=== PATIENT | male | born 1955 | race Caucasian/White ===

== ENCOUNTER 2018-01-12 08:38 | Inpatient (IN) | payer BC ==
[2018-01-12 09:19] LABS: #Basophils 0.1 thou/uL (0.0-0.2); #Eosinphils 0.3 thou/uL (0.0-0.7); #Lymphocytes 1.6 thou/uL (1.20-3.40); #Monocytes 0.6 thou/uL (0.11-0.59); #Neutrophils 3.6 thou/uL (1.40-6.50); %Basophils 1.3 % (0.0-1.0); %Eosinophils 4.6 % (0.0-10.0); %Neutrophils 58.1 % (42.0-75.0); Hemoglobin 17.9 g/dL (14.0-18.0); Mean Corpuscular HGB CONC 34.2 g/dL (32.0-36.0); Mean Corpuscular Hemoglobin 32.6 pg (27.0-31.0); Mean Corpuscular Volume 95.4 fl (80.0-94.0); Mean Platelet Volume 8.1 fL (7.4-10.4); Platelet Count 169 thou/uL (130-400); RBC Distribution Width 11.9 % (11.5-14.5); Red Blood Cell (RBC) Count 5.48 mill/uL (4.70-6.10); White Blood Cell (WBC) Count 6.2 thou/uL (4.8-10.8)
[2018-01-12] MEDS ORDERED: Esmolol 100 MG/10 ML VIAL IVP SCH (09:30)
[2018-01-12 09:33] LABS: ALT (SGPT) 20 U/L (8-55); AST (SGOT) 20 U/L (5-34); Albumin 4.1 g/dL (3.4-4.8); Alkaline Phosphatase 73 U/L (40-150); Anion Gap 13 mmol/L (10-20); BUN (Urea Nitrogen) 17 mg/dL (8.4-25.7); Bilirubin, Total 0.8 mg/dL (0.2-1.2); CK (CPK) 113 U/L (30-200); Calc. Creatinine Clearance 0 mL/min (70-130); Calcium 9.3 mg/dL (7.8-10.44); Carbon Dioxide 24 mmol/L (23-31); Chloride 106 mmol/L (98-107); Estimated GFR-MDRD Greater than 90; Glucose 112 mg/dL (80-115); Potassium 4.6 mmol/L (3.5-5.1); Protein, Total 7.1 g/dL (5.8-8.1); Sodium 138 mmol/L (136-145)
[2018-01-12 09:36] LABS: CKMB 2.6 ng/mL (0-6.6); Troponin I Less than 0.010 ng/mL (< 0.028)
[2018-01-12] MEDS ORDERED: Esmolol 2,500 MG/250 ML 250 ML ONE (09:52)
--- NOTE | 2018-01-12 10:16 | RAD ---
CHEST ONE VIEW PORTABLE: HISTORY: A 62-year-old male with a history of palpitations. FINDINGS: Monitor leads overly the chest. Minimal increased linear and interstitial markings bilaterally, havi ng more the appearance of chronic lung change. No confluent pneumonia, overt edema, or pleural effus ion. IMPRESSION: No significant acute process. No pneumonia, edema, pleural effusion, or other acute process. POS: OFF
--- NOTE | 2018-01-12 10:51 | PDOC.FPRHP ---
- History of Present Illness Chief Complaint: Palpitations History of Present Illness: This is a 62 y/o M with no PMHx who presents with because of his heart racing that woke him up around 0300 this AM. He had associated numbness on his chest, but denies any SOB, chest pain, recent fevers. He reports that he has had episodes of his heart racing before that will last for about an hour and then go away on their own. During these episodes he will get a little lightheaded if he gets up and walks around, but the lightheadedness resolves after a few minutes. He has never sought medical attention for this before. He has no history of heart disease or heart failure. He denies exercise intolerance. He takes an aspirin every day. ED Course: The patient was seen in the ED and found to be in a-fib with RVR and started on an esmolol gtt after getting a bolus of esmolol of 0.5 mg/kg. He was also given 1L NS bolus. - Allergies/Adverse Reactions Allergies Allergy/AdvReac Type Severity Reaction Status Date / Time No Known Allergies Allergy Verified 01/12/18 14:56 - Home Medications Medication Instructions Recorded Confirmed Type Aspirin 325 mg PO DAILY 01/12/18 01/12/18 History Apixaban [Eliquis] 5 mg PO BID 01/15/18 01/15/18 History Apixaban [Eliquis] 5 mg PO BID #60 tablet 01/15/18 Rx Sotalol HCl [Betapace] 120 mg PO BID #60 tab 01/15/18 Rx Comments: None - History PMHx: None PSHx: 1. Appendectomy 2. Hernia Repair 3. R shoulder sx FHx: Father- valvular heart disease Social: Drinks 5-12 beers/day. He states that he can go for 24 hours without shakes. his last drink was yesterday at 3 PM. Denies drug or tobacco use. 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 PCP: none, gets physicals and urgent care treatment at work clinic. - Review of Systems General: denies: fever/chills, weight/appetite/sleep changes, night sweats Eyes: denies: eye pain, vision changes ENT: denies: nasal congestion, rhinorrhea Respiratory: denies: cough, congestion, shortness of breath Cardiovascular: reports: palpitation. denies: chest pain, edema, paroxysmal nocturnal dyspnea, orthopnea Gastrointestinal: denies: nausea, vomiting, diarrhea, constipation Genitourinary: denies: incontinence, dysuria Skin: denies: rashes, lesions, jaundice Musculoskeletal: denies: pain, tenderness, stiffness Neurological: denies: numbness, syncope Psychological: denies: anxiety, depression - Vital signs BP: 126/95 HR: 134 RR: 19 Pox: 93% on RA Wt: 92.9 kg - Physical Exam Constitutional: NAD, awake, alert and oriented, well developed HEENT: normocephalic and atraumatic, PERRLA, EOMI, conjunctiva clear, grossly normal vision, grossly normal hearing, normal nasal mucosa, MMM, oropharynx clear, good dention Neck: supple, FROM, trachea midline, no LAD, no JVD -Heart: irregularly irregular, tachycardic, no murmurs, 2+ radial and pedal pulses, no peripheral edema Lungs: CTAB, no respiratory distress, good air movement, no rales/rhonchi, no wheezing, no retractions Abdomen: soft, non-tender, bowel sounds present, no masses/distention Musculoskeletal: normal structure, normal tone Neurological: no focal deficit, CN II-XII intact Skin: good turgor, capillary refill <2 seconds Heme/Lymphatic: no unusual bruising or bleeding, no LAD Psychiatric: normal mood and affect, good judgment and insight, intact recent and remote memory FMR H&P: Results - Labs Result Diagrams: 01/12/18 09:07 01/13/18 04:05 Lab results: WBC 6.2 thou/uL (4.8-10.8) 01/12/18 09:07 Hgb 17.9 g/dL (14.0-18.0) 01/12/18 09:07 Hct 52.3 % (42.0-52.0) H 01/12/18 09:07 MCV 95.4 fl (80.0-94.0) H 01/12/18 09:07 Plt Count 169 thou/uL (130-400) 01/12/18 09:07 Neutrophils % 58.1 % (42.0-75.0) 01/12/18 09:07 Sodium 138 mmol/L (136-145) 01/12/18 09:07 Potassium 4.6 mmol/L (3.5-5.1) 01/12/18 09:07 Chloride 106 mmol/L (98-107) 01/12/18 09:07 Carbon Dioxide 24 mmol/L (23-31) 01/12/18 09:07 BUN 17 mg/dL (8.4-25.7) 01/12/18 09:07 Creatinine 0.85 mg/dL (0.6-1.3) 01/12/18 09:07 Glucose 112 mg/dL (80-115) 01/12/18 09:07 Calcium 9.3 mg/dL (7.8-10.44) 01/12/18 09:07 Total Bilirubin 0.8 mg/dL (0.2-1.2) 01/12/18 09:07 AST 20 U/L (5-34) 01/12/18 09:07 ALT 20 U/L (8-55) 01/12/18 09:07 Alkaline Phosphatase 73 U/L (40-150) 01/12/18 09:07 Creatine Kinase 113 U/L (30-200) 01/12/18 09:07 CK-MB (CK-2) 2.6 ng/mL (0-6.6) 01/12/18 09:07 Serum Total Protein 7.1 g/dL (5.8-8.1) 01/12/18 09:07 Albumin 4.1 g/dL (3.4-4.8) 01/12/18 09:07 - EKG Interpretation EKG: HR 162, A-fib with RVR - Radiology Interpretation Chest x-ray Status: image reviewed by me, report reviewed by me Additional comment: No acute cardiopulmonary process FMR H&P: A/P - Problem List (1) Atrial fibrillation with RVR Status: Acute Code(s): I48.91 - UNSPECIFIED ATRIAL FIBRILLATION (2) Alcohol abuse Status: Acute Code(s): F10.10 - ALCOHOL ABUSE, UNCOMPLICATED - Plan Atrial fibrillation with RVR This is new onset a-fib with RVR. The patient denies any h/o a-fib previously. The patient's initial HR was 161 and it improved to the 130's after an esmolol bolus and he was started on an esmolol gtt in the ED. -Prefer to admit to Tele or IMCU, but denied based on nursing protocols so will admit to ICU -Will start on diltiazem gtt, titrate to HR < 110, monitor BP closely -Will check TSH, Mag, Phos -Echo -Trend cardiac enzymes, first one was negative -Dr. Christianson with carol has been consulted, appreciate recs Alcohol Abuse Patient drinks 5-12 beers daily, but has days where he skips without signs of withdrawal. -ASE protocol, monitor for signs/symptoms of withdrawal -Thiamine -Folic Acid -Multivitamin VTE ppx: Lovenox Code Status: Full Disposition/LOS: Patient seems stable for Tele or IMCU per our judgement, but based on nursing protocols and his diltiazem drip, they declined and we will admit to ICU. length of stay likely greater than 2 days FMR H&P: Upper Level - Pertinent history 62 yo who woke up with palptiations at 4 am. he took a few aspirin, he had some lightheadedness and fatigue but denies chest pain. He did have a numbness in his chest. Denies exertional symptoms at baseline. He had a few of these events for the last 2 years but nothing this significant and nothing he has gotten checked out. This usually goes away on his own. - Pertinent findings Gen: overweight male in no acute distress, oriented and not in discomfort HEENT: NC/AT, ANAIS,EOMI, MMM Resp: CTA, normal work of breathing CV: tachycardic with irregularly irregular rhythm, normal S1, S2, no murmur ABD: Soft nontender, nondistended. No CVA tenderness Extremities: no edema, pulses 2+ Psych: calm, normal affect and mood Neuro: No focal defecits. CN intact, normal strength and sensation - Plan Date/Time: 01/12/18 1049 Estefania King, have evaluated this patient and agree with findings/plan as outlined by senior insight manager international resident. Pertinent changes/additions are listed here. 1. Atrial fibrillation with rapid ventricular response- We will use diltiazam to bring rate down below 110 while maintaining blood pressure. If BP becomes an issue, will add digoxin. We will work up with electrolytes, echo and repeat troponins. Carol was consulted in ED and we look forward to their recs. CHADS VASC score is negative, and while he occasionally gets brief episodes of palpitations, He does not have record or hx consistent with sustained Afib, so will hold on therapeutic lovenox at this time until cardiology evaluates him. 2. Etoh abuse- patient drinks daily 5-12 beers but denies withdrawal related symptoms when he does not drink. Will monitor on SULLY protocol. 3. DVT ppx- will start lovenox Attending Addendum - Attending Addendum Date/Time: 01/12/18 1700 I personally evaluated the patient and discussed the management with Dr. Hernandez and Dr. May I agree with the History, Examination, Assessment and Plan documented above with any addition or exceptions noted below. 62 yo male admitted for new onset A. fib with RVR. Has been placed on CCB drip to help with rate control. BP stable. Asymptomatic at present. HR 100s. Cards has been consulted. No need for cardioversion at present. Will start ppx dose of Lovenox per card recs at present but could change based on findings. Add ASA. Labs pending. Place on tele. ECHO pending. Will follow cards recs for rate vs rhythm control. Possible history of pA. fib per ROS. No prior MD so medical hx is negative at present. Hx of EtOH use. Will monitor for withdrawal symptoms. Add ASE protocol. Agus
[2018-01-12] MEDS ORDERED: Diltiazem 125 MG in Sodium Chloride 0.9% 100 ML IVPB SCH (11:30)
[2018-01-12 12:31] LABS: Troponin I Less than 0.010 ng/mL (< 0.028)
[2018-01-12] MEDS ORDERED: Digoxin 0.5 MG/2 ML AMP ONE (13:27)
[2018-01-12] MEDS ORDERED: Ondansetron ODT 4 MG TAB PO PRN (14:11)
[2018-01-12 14:40] LABS: Magnesium 2.1 mg/dL (1.6-2.6); Phosphorus 3.2 mg/dL (2.3-4.7)
[2018-01-12] MEDS ORDERED: Multivitamin W/ Minerals 1 TAB PO SCH (14:45)
[2018-01-12] MEDS ORDERED: Folic Acid 1 MG TAB PO SCH (14:45)
[2018-01-12 15:07] VITALS: BMI 30.1
--- NOTE | 2018-01-12 15:47 | CON ---
DATE OF CONSULTATION: 01/12/2018 SERVICE: Pulmonary Medicine. INTERVAL HISTORY: The patient is doing fine from a respiratory standpoint. He denies any current chest pain, nausea, vomiting, fevers or chills. He presented to the hospital because this morning he woke up with some palpitations and a funny numbness and tingling in his right arm. The numbness and tingling went away. That being said, he has had these palpitations on and off for several months, if not years. It became more severe dramatically recently. He recently had 2 weeks of vacation. On waking up this morning, he finally decided to get this thing checked out. When he presented to the Emergency Department, he was found to be in an abnormal rhythm. He denies any current nausea, vomiting, fevers, chills, diarrhea, constipation, hot and red swollen joints, rashes. PAST MEDICAL HISTORY: Atrial fibrillation with a history of RVR. PAST SURGICAL HISTORY: 1. Appendectomy. 2. Herniorrhaphy. 3. Right shoulder surgery. FAMILY HISTORY: Noncontributory. SOCIAL HISTORY: He drinks 6-12 beers on a daily basis. He does have withdrawal features if he goes more than 24 hours without alcohol. He has never had any seizures. He denies any street drugs, or tobacco use. 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 He has no exposures to chemicals, dust, asbestosis or tuberculosis otherwise. ALLERGIES: No known drug allergies. MEDICATIONS: List of his inpatient medications was reviewed. No specific updates were made. REVIEW OF SYSTEMS: General, head, ears, eyes, nose, throat, cardiovascular, respiratory, GI, , musculoskeletal, neurologic and skin is negative except as mentioned in the HPI. PHYSICAL EXAMINATION: VITAL SIGNS: Afebrile, pulse 95, blood pressure 132/77, respirations 17, saturation 92% on room air. GENERAL: The patient is awake, alert, no apparent distress. LUNGS: Excellent air entry. Minimal crackles are present. There is no prolonged expiratory phase or wheezing present. HEART: Normal rate and regular. ABDOMEN: Soft, nontender, and nondistended. Bowel sounds are positive. MUSCULOSKELETAL: No cyanosis or clubbing. No pitting in the bilateral lower extremities. NEUROLOGIC: Grossly nonfocal. LABORATORY DATA: WBC 6.2, hemoglobin 17.9, platelets 169,000. Basic metabolic profile and liver function studies are unremarkable. Cardiac enzymes are negative x2. TSH 1.77, magnesium and phosphorus fall within normal limits. IMAGING: Chest x-ray demonstrates no acute cardiopulmonary abnormality. ASSESSMENT: 1. Atrial fibrillation with rapid ventricular response with improving rate control. 2. Alcohol abuse. 3. Holiday heart, suspected. PLAN: I will continue on rate control medication. Cardiology consultation has been placed for the patient's new onset of atrial fibrillation. Agree with watching his ASE scores. If he bumps, benzodiazepine should be initiated. I will provide him with a beer 3 times daily and we can increase if we need to prevent withdrawal features. At this point, the patient is not too terribly interested in discontinuing his habit of drinking. From my perspective, he is stable for transition to the telemetry unit. I will continue to follow with you if he remains in this location. 70 minutes have been devoted to this patient in various activities. I personally reviewed all imaging studies and laboratory data noted within this document. For fifty percent of this time, I was interacting with the patient at the bedside or coordinating care with the care team. For the remainder of the time I was immediately available to the patient in the hospital unit. CHRIS
[2018-01-12 15:52] LABS: Troponin I Less than 0.010 ng/mL (< 0.028)
[2018-01-12] MEDS ORDERED: Enoxaparin Sodium 40 MG/0.4 ML SYRINGE SC SCH (16:30)
--- NOTE | 2018-01-12 16:54 | CON ---
DATE OF CONSULTATION: 01/12/2018 INDICATION FOR CONSULTATION: A 62-year-old gentleman with new onset atrial fibrillation with rapid v entricular response. HISTORY OF PRESENT ILLNESS: This very pleasant 62-year-old gentleman has had some episodes of some p alpitations for the last couple of years that usually just resolve on their own. At approximately 03 :00 this morning, he woke up with a rapid heart rate with some numbness in the right arm and hand and actually just a couple of the fingers and also had some kind of tingling sensation in his hands and then he had what he said was some numbness in the chest area. The rapid heart rate continued and he presented to the emergency room and was found to be in atrial fibrillation with rapid ventricular res ponse with heart rate about 160 beats per minute. He was given IV esmolol and has now been switched over to IV diltiazem and has been placed in the Intensive Care Unit, but he is feeling fine. He deya ed any chest pain otherwise and he has had no previous cardiac history except for the palpitations. He does have a significant use of alcohol. He denied any other significant abnormalities that would cause him to be in atrial fibrillation. He does not have any history of hypertension, hypercholester olemia or diabetes. He has a history of tobacco abuse. FAMILY HISTORY: His father had some heart disease, otherwise is unremarkable. There were no other s ignificant indications as to why he may have atrial fibrillation other than the increased alcohol use . PAST MEDICAL HISTORY: Right shoulder surgery, appendectomy and hernia repair. SOCIAL HISTORY: He is . He has children who are alive and well without heart disease. He h as no tobacco abuse. He usually drinks 5-12 beers a day. 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 ALLERGIES: None. MEDICATIONS: At present, he is on aspirin 325 mg a day, IV diltiazem. He is also on Lovenox. He ferrer s been given just a DVT prophylaxis dose. He had been given beta blockers in the emergency room. Th na have been discontinued. He is on folic acid as well as his multivitamins, thiamine and Zofran an d I will start him on sotalol 80 mg b.i.d. REVIEW OF SYSTEMS: Twelve point review of systems unremarkable except for the palpitations. PHYSICAL EXAMINATION: GENERAL: Reveals a well-developed, well-nourished gentleman who is in no acute distress. VITAL SIGNS: Blood pressure 132/77, heart rate is now in the 90s-106, previous it was 162, respirato ry rate 17, O2 saturation 92%. HEENT: Shows head to be normocephalic and atraumatic. Carotid pulses are present. There were no br uits. There is no JVD. The thyroid is not enlarged. Oral mucosa was pink and moist. CHEST: Clear. There is no evidence of rales, rhonchi or wheezing. CARDIOVASCULAR: Reveals a rapid heart rate, somewhat irregular. There were no significant murmurs, heaves, thrills, bruits or rubs noted. ABDOMEN: Soft and nontender with positive bowel sounds. EXTREMITIES: Show no clubbing, cyanosis or edema. Pedal pulses are present. NEUROLOGIC: The patient is intact. SKIN: Warm and dry. LABORATORY DATA: His EKG when he had atrial fibrillation with rapid ventricular response shows atria l fibrillation. There were no acute ST segment elevations to indicate ischemia. His laboratory data is relatively unremarkable except he has elevated hemoglobin and hematocrit with hemoglobin of 17.9. His BUN and creatinine are stable. Creatinine 0.85. MB was 2.6 with negative cardiac enzymes. EK G showed no acute changes. IMPRESSION: 1. Atrial fibrillation with rapid ventricular response, which is under better control now with the u se of IV diltiazem. At this time, I will start him on beta miriam in the form of sotalol 80 mg b.i. d. and see if he will convert to sinus rhythm. If not, he may need to undergo electrocardioversion t omorrow and be maintained on medications, but would hopefully have at least 2 or 3 doses sotalol on b oard prior to starting with a cardioversion. He is at low risk for any acute embolic phenomenon sinc e his CHADS-VASc score is low. We will continue to monitor him. The echocardiogram is still pending . 2. Significant alcohol use. I advised him to stop drinking. He will at least need to curtail this significantly. It is a good possibility that this may be the etiology of his atrial fibrillation. Marvin durant has been on vacation recently and said he has been drinking more than normally he does and he drink s up to a 6-12 beers a day. We would be more than happy to continue to follow the patient with you, but further recommendations will depend on evaluation of the echocardiogram. Eventually, he may need to undergo a stress test, but there were no EKG changes with a heart rate in the 160, which would ce rtainly be somewhat suspicious for having known coronary artery disease. I would continue the aspiri n at this time as well as the IV diltiazem. Should he convert to sinus rhythm, then I will stop the IV diltiazem and continue the Betapace or sotalol.
[2018-01-12] MEDS ORDERED: Enoxaparin Sodium 100 MG/ML SYRINGE SC SCH (17:00)
[2018-01-12] MEDS ORDERED: Sotalol HCl 80 MG TAB PO SCH (17:30)
[2018-01-12] MEDS: Thiamine HCl 200 MG/2 ML VIAL SLOW IVP SCH (18:43)
[2018-01-12 23:44] LABS: Medtox Reader # READER 4
[2018-01-12 23:45] LABS: Amphetamine Not Detected (NotDetected); Barbiturates Screen Not Detected (NotDetected); Benzodiazepine Screen Not Detected (NotDetected); Cocaine Metabolite Screen Not Detected (NotDetected); Medtox Control Line Valid? VALID (VALID); Methadone Not Detected (NotDetected); Methamphetamine Not Detected (NotDetected); Opiate Screen Not Detected (NotDetected); Oxycodone Screen Not Detected (NotDetected); Phencyclidine (PCP) Not Detected (NotDetected); THC/Cannabinoid Screen Not Detected (NotDetected); Tricyclic Screen Not Detected (NotDetected)
[2018-01-13 04:42] LABS: Anion Gap 13 mmol/L (10-20); BUN (Urea Nitrogen) 13 mg/dL (8.4-25.7); Calc. Creatinine Clearance 131 mL/min (70-130); Calcium 9.1 mg/dL (7.8-10.44); Carbon Dioxide 27 mmol/L (23-31); Chloride 104 mmol/L (98-107); Estimated GFR-MDRD Greater than 90; Glucose 102 mg/dL (80-115); Potassium 4.5 mmol/L (3.5-5.1); Prothrombin Time 13.4 SEC (12.0-14.7); Sodium 139 mmol/L (136-145)
--- NOTE | 2018-01-13 08:36 | PDOC.FM ---
- Subjective Subjective: The patient reports that he is no longer feeling his heart race this morning. His chest does feel a little sore, but he denies any chest pain, SOB. He has been up walking to the bathroom a couple of times last night and denied any lightheadedness or dizziness when doing so. He denies any tremors. - Objective MAR Reviewed: Yes Vital Signs & Weight: Vital Signs (12 hours) Temp Pulse Resp BP BP Pulse Ox 01/13/18 07:59 98.0 F 118 H 19 107/75 94 L 01/13/18 06:10 101 H 97/75 01/13/18 04:00 97.7 F 73 20 115/74 95 01/12/18 23:49 97.7 F 74 16 107/86 95 01/12/18 21:29 98.2 F 55 L 16 118/75 93 L Weight Weight 92.624 kg Most Recent Monitor Data Heart Rate from ECG 54 NIBP 95/71 NIBP BP-Mean 82 Respiration from ECG 13 SpO2 96 I&O: 01/12/18 01/13/18 01/14/18 06:59 06:59 06:59 Intake Total 900 Output Total 1475 Balance -575 Result Diagrams: 01/12/18 09:07 01/13/18 04:05 <Shonna Hernandez - Last Filed: 01/13/18 08:34> - Objective Vital Signs & Weight: Vital Signs (12 hours) Temp Pulse Resp BP BP BP Pulse Ox 01/13/18 15:36 98.4 F 121 H 16 113/79 92 L 01/13/18 12:30 97.9 F 115 H 16 133/88 96 01/13/18 12:16 121 H 01/13/18 11:34 97.8 F 115 H 18 114/80 91 L 01/13/18 11:30 116 H 16 112/75 93 L 01/13/18 08:12 98.0 F 118 H 19 94 L 01/13/18 07:59 98.0 F 118 H 19 107/75 94 L 01/13/18 06:10 101 H 97/75 Weight Weight 92.624 kg Most Recent Monitor Data Heart Rate from ECG 54 NIBP 95/71 NIBP BP-Mean 82 Respiration from ECG 13 SpO2 96 I&O: 01/12/18 01/13/18 01/14/18 06:59 06:59 06:59 Intake Total 900 962 Output Total 1475 1225 Balance -575 -263 Result Diagrams: 01/12/18 09:07 01/13/18 04:05 <Charla Jerez - Last Filed: 01/13/18 17:08> Phys Exam - Physical Examination Constitutional: NAD (on 2L O2 by NC) HEENT: moist MMs Respiratory: no wheezing, no rales, no rhonchi, clear to auscultation bilateral irregularly irregular, tachycardic, no murmurs, 2+ radial and pedal pulses Gastrointestinal: soft, non-tender, no distention, positive bowel sounds Musculoskeletal: no edema Neurological: non-focal, moves all 4 limbs Psychiatric: normal affect, A&O x 3 Skin: normal turgor, cap refill <2 seconds <Shonna Hernandez - Last Filed: 01/13/18 08:34> Dx/Plan (1) Atrial fibrillation with RVR Code(s): I48.91 - UNSPECIFIED ATRIAL FIBRILLATION Status: Acute (2) Alcohol abuse Code(s): F10.10 - ALCOHOL ABUSE, UNCOMPLICATED Status: Acute - Plan Plan: Atrial fibrillation with RVR This is new onset a-fib with RVR. The patient denies any h/o a-fib previously. The patient's initial HR was 161 and it improved to the 130's after an esmolol bolus and he was started on an esmolol gtt in the ED. Cardiac enzymes negative x3. TSH, mag, phos WNL. UDS negative. Echo showed EF 60-65% with moderately dilated L atrium. Pt was on dilt gtt plus sotalol, but the HR yesterday evening dropped into the 40s-50s so the dilt gtt was d/c'd. The patient's HR then started to creep up and as of this AM was up into the 110s-120s with spikes into the 130s. He was given his AM dose of sotalol and his HR is now in the 90s-low 100s. -Monitor on tele -Continue sotalol 80mg BID per cardiology -Restart dilt gtt if needed -CHADs-Vasc score 0 - low risk for embolic event, so will continue aspirin for now. -Dr. Christianson with cards has been consulted, appreciate recs Alcohol Abuse Patient drinks 5-12 beers daily, but has days where he skips without signs of withdrawal. The EtOH abuse is likely the cause of his a-fib with RVR. No current signs of withdrawal. -ASE protocol, monitor for signs/symptoms of withdrawal -Thiamine -Folic Acid -Multivitamin <Shonna Hernandez - Last Filed: 01/13/18 08:34> Attending Addendum - Attending Addendum Date/Time: 01/13/18 7106 I personally evaluated the patient and discussed the management with Dr. Hernandez. I agree with the History, Examination, Assessment and Plan documented above with any addition or exceptions noted below. Patient started on sotalol yesterday. Diltiazem drip was stopped overnight due to bradycardia. This morning he is tachycardic again. Echo results reviewed. May need to go back on drip if heart rate rises. <Charla Jerez - Last Filed: 01/13/18 17:08>
[2018-01-13] MEDS ORDERED: Sotalol HCl 80 MG TAB PO SCH (09:00)
[2018-01-13] MEDS ORDERED: Enoxaparin Sodium 40 MG/0.4 ML SYRINGE SC SCH ×2 (09:00)
[2018-01-13] MEDS: Aspirin 325 MG TAB PO SCH (09:08)
[2018-01-13] MEDS: Multivitamin W/ Minerals 1 TAB PO SCH (09:08)
[2018-01-13] MEDS: Folic Acid 1 MG TAB PO SCH (09:09)
--- NOTE | 2018-01-13 10:25 | PRG ---
DATE OF SERVICE: 01/13/2018 SERVICE: Pulmonary Medicine. INTERVAL HISTORY: The patient is doing fine from a respiratory standpoint. He is breathing comforta natalya. He denies any chest pain, nausea, vomiting, fevers or chills. His heart is still racing. Othe rwise, there has been no interval change to his condition. PHYSICAL EXAMINATION: VITAL SIGNS: Afebrile, pulse 118, blood pressure 107/75, respirations 19, saturation 94% on 2 liters nasal cannula. GENERAL: The patient is awake and alert, in no apparent distress. LUNGS: Decent air entry. There are some crackles present. No prolonged expiratory phase or wheezin g is appreciated, however. HEART: Tachycardic. Irregular. ABDOMEN: Soft, nontender, nondistended. Bowel sounds are positive. MUSCULOSKELETAL: No cyanosis or clubbing. There is no pitting in the bilateral lower extremities. NEUROLOGIC: Grossly nonfocal. LABORATORY DATA: WBC 6.2, hemoglobin 17.9, platelets 169,000. INR 1.0. Basic metabolic profile is unremarkable. Urinalysis is completely unremarkable. IMAGING: Echocardiogram demonstrates 60%-65% ejection fraction. Moderately dilated left atrium. Di astology cannot be assessed because of atrial fibrillation. ASSESSMENT: 1. Atrial fibrillation with rapid ventricular response. 2. Alcohol abuse with history of withdrawal symptoms. PLAN: The patient is doing fantastic from a respiratory standpoint. From my perspective, he can be transitioned to the floor while we continue to work on his atrial fibrillation. Plan per Cardiology. We will follow intermittently while he remains here.
[2018-01-13] MEDS ORDERED: Digoxin 0.5 MG/2 ML AMP SLOW IVP SCH ×2 (12:15→18:30)
--- NOTE | 2018-01-13 14:11 | PDOC.CTH ---
<Becca Domingo - Last Filed: 01/13/18 14:11> Cardiology Progress Note - Subjective The pt seen and examined. No overnight events. No cardiac complaints. He took a shower without any difficulties. - Objective Vital Signs Temp Pulse Resp BP BP BP Pulse Ox 01/13/18 12:16 121 H 01/13/18 11:34 97.8 F 115 H 18 114/80 91 L 01/13/18 11:30 116 H 16 112/75 93 L 01/13/18 08:12 98.0 F 118 H 19 94 L 01/13/18 07:59 98.0 F 118 H 19 107/75 94 L 01/13/18 06:10 101 H 97/75 01/13/18 04:00 97.7 F 73 20 115/74 95 Weight 204 lb 3.2 oz 01/12/18 01/13/18 01/14/18 06:59 06:59 06:59 Intake Total 900 962 Output Total 1475 1225 Balance -575 -263 - Physical Examination General/Neuro: alert & oriented x3 Neck: no JVD present Lungs: CTA Heart: other: (irregular) Abdomen: soft Extremities: other: (no edema) - Telemetry Telemetry Rhythm: Afib 140-150s - Labs Result Diagrams: 01/12/18 09:07 01/13/18 04:05 Troponin/CKMB CK-MB (CK-2) 2.6 ng/mL (0-6.6) 01/12/18 09:07 Troponin I Less than 0.010 ng/mL (< 0.028) 01/12/18 15:18 - Assessment/Plan 1. Afib with RVR - Diltiazem 5mg/h was started around 1400 today for HR up to 150s after Digoxin 0.5mg IV was given. On Diltiazem 5mg/h, Digoxin, Sotalol 80mg BID, and ASA 325mg daily (CHADS-VASc Score is 0) 2. ETOH abuse - 5-12 beers/day; No withdraw episode at this moment. MAR reviewed * Echo on 01/12/18 showed EF 60-65% with moderately dilated L atrium, mild MR, trace AR and TR. Review of Systems - Review of Systems Constitutional: reports: no symptoms reported EENTM: reports: no symptoms reported Respiratory: reports: no symptoms reported Cardiac (ROS): reports: no symptoms reported ABD/GI: reports: no symptoms reported : reports: no symptoms reported Musculoskeletal: reports: no symptoms reported <Damon Christianson - Last Filed: 01/13/18 17:31> Cardiology Progress Note - Objective Vital Signs Temp Pulse Resp BP BP BP Pulse Ox 01/13/18 15:36 98.4 F 121 H 16 113/79 92 L 01/13/18 12:30 97.9 F 115 H 16 133/88 96 01/13/18 12:16 121 H 01/13/18 11:34 97.8 F 115 H 18 114/80 91 L 01/13/18 11:30 116 H 16 112/75 93 L 01/13/18 08:12 98.0 F 118 H 19 94 L 01/13/18 07:59 98.0 F 118 H 19 107/75 94 L 01/13/18 06:10 101 H 97/75 Weight 204 lb 3.2 oz 01/12/18 01/13/18 01/14/18 06:59 06:59 06:59 Intake Total 900 962 Output Total 2295 1225 Balance -575 -263 - Labs Result Diagrams: 01/12/18 09:07 01/13/18 04:05 Troponin/CKMB CK-MB (CK-2) 2.6 ng/mL (0-6.6) 01/12/18 09:07 Troponin I Less than 0.010 ng/mL (< 0.028) 01/12/18 15:18 - Assessment/Plan Pt. seen and eval. by me. I agree with the A/P by the MANUFACTURING SR ENGINEER. He is still maintaining a rapid rate with the Afib. I will increase the sotolol, continue dilt., and digoxin.if he does not convert over the weekend then plan for cardioversion on Tuesday. I will ask EP to see him also. he may be a candidate for PVAI.
[2018-01-13] MEDS: Thiamine HCl 200 MG/2 ML VIAL SLOW IVP SCH (17:12)
[2018-01-13] MEDS: Enoxaparin Sodium 100 MG/ML SYRINGE SC SCH (20:22)
[2018-01-13] MEDS: Sotalol HCl 80 MG TAB PO SCH (20:23)
--- NOTE | 2018-01-14 07:42 | PDOC.FM ---
- Subjective Subjective: Patient feeling well this AM. He denies any SOB, Chest pain, heart racing, N/V. He is tolerating PO well. He denies lightheadedness or dizziness. - Objective MAR Reviewed: Yes Vital Signs & Weight: Vital Signs (12 hours) Temp Pulse Resp BP BP BP Pulse Ox 01/14/18 07:10 98.1 F 59 L 16 120/85 92 L 01/14/18 04:38 97.9 F 64 12 105/67 91 L 01/14/18 00:00 97.8 F 64 16 116/70 91 L 01/13/18 20:23 83 121/87 01/13/18 20:22 98.4 F 83 18 95 01/13/18 20:00 98.4 F 83 18 121/87 95 Weight Weight 87.362 kg Most Recent Monitor Data Heart Rate from ECG 54 NIBP 95/71 NIBP BP-Mean 82 Respiration from ECG 13 SpO2 96 I&O: 01/13/18 01/14/18 01/15/18 06:59 06:59 06:59 Intake Total 900 2277 Output Total 1475 2385 Balance -575 -108 Result Diagrams: 01/12/18 09:07 01/13/18 04:05 <Shonna Hernandez - Last Filed: 01/14/18 07:37> - Objective Vital Signs & Weight: Vital Signs (12 hours) Temp Pulse Resp BP BP Pulse Ox 01/14/18 07:10 98.1 F 59 L 16 120/85 95 01/14/18 04:38 97.9 F 64 12 105/67 91 L 01/14/18 00:00 97.8 F 64 16 116/70 91 L Weight Weight 192 lb 9.6 oz Most Recent Monitor Data Heart Rate from ECG 54 NIBP 95/71 NIBP BP-Mean 82 Respiration from ECG 13 SpO2 96 I&O: 01/13/18 01/14/18 01/15/18 06:59 06:59 06:59 Intake Total 900 2277 Output Total 1475 2385 Balance -575 -108 Result Diagrams: 01/12/18 09:07 01/13/18 04:05 <Estevan Puentes - Last Filed: 01/14/18 10:37> Phys Exam - Physical Examination Constitutional: NAD HEENT: moist MMs Respiratory: no wheezing, no rales, no rhonchi, clear to auscultation bilateral Cardiovascular: RRR, no significant murmur, no rub Gastrointestinal: soft, non-tender, no distention, positive bowel sounds Musculoskeletal: no edema, pulses present Neurological: normal sensation, moves all 4 limbs Psychiatric: normal affect, A&O x 3 Skin: normal turgor, cap refill <2 seconds <Shonna Hernandez - Last Filed: 01/14/18 07:37> Dx/Plan (1) Atrial fibrillation with RVR Code(s): I48.91 - UNSPECIFIED ATRIAL FIBRILLATION Status: Acute (2) Alcohol abuse Code(s): F10.10 - ALCOHOL ABUSE, UNCOMPLICATED Status: Acute - Plan Plan: Atrial fibrillation with RVR This is new onset a-fib with RVR. The patient denies any h/o a-fib previously. The patient's initial HR was 161 and it improved to the 130's after an esmolol bolus and he was started on an esmolol gtt in the ED. Cardiac enzymes negative x3. TSH, mag, phos WNL. UDS negative. Echo showed EF 60-65% with moderately dilated L atrium. Pt's sotalol was increased yesterday evening to 120mg and he was given digoxin. He converted into NSR around 1730 yesterday evening. He remained sinus ever since, but had some sinus bradycardia into the 50's. The dilt was stopped at that point. He has been in NSR in the 60s since then. -Monitor on tele -Continue sotalol 120mg BID per cardiology -Continue digoxin 0.125mg daily per cardiology -CHADs-Vasc score 0 - low risk for embolic event, so will continue aspirin for now. -Dr. Christianson with cards has been consulted, appreciate recs -Will discuss dispo plan with cards today -Patient does not have PCP, so gave him my card to f/u with me in clinic for close f/u. Alcohol Abuse Patient drinks 5-12 beers daily, but has days where he skips without signs of withdrawal. The EtOH abuse is likely the cause of his a-fib with RVR. Have discussed extensively with patient the importance of cessation of alcohol use. No current signs of withdrawal. ASE scores 4 -ASE protocol, monitor for signs/symptoms of withdrawal -Thiamine -Folic Acid -Multivitamin <Shonna Hernandez - Last Filed: 01/14/18 07:37> Attending Addendum - Attending Addendum Date/Time: 01/14/18 [id number] I personally evaluated the patient and discussed the management with Dr. Hernandez I agree with the History, Examination, Assessment and Plan documented above with any addition or exceptions noted below. Patient converted to NSR last night. Will discuss plan with Cardiology for which oral medication to d/c on and will transition to that medication today and watch for one more night to be sure the patient does not convert back to a- fib. Counseled on alcohol cessation. <Estevan Puentes - Last Filed: 01/14/18 10:37>
[2018-01-14] MEDS ORDERED: Digoxin 0.25 MG TAB PO SCH (09:00)
[2018-01-14] MEDS: Folic Acid 1 MG TAB PO SCH (09:06)
[2018-01-14] MEDS: Enoxaparin Sodium 100 MG/ML SYRINGE SC SCH ×2 (09:07→20:36)
[2018-01-14] MEDS: Aspirin 325 MG TAB PO SCH (09:07)
[2018-01-14] MEDS: Multivitamin W/ Minerals 1 TAB PO SCH (09:07)
--- NOTE | 2018-01-14 10:01 | CON ---
DATE OF CONSULTATION: 01/13/2018 ELECTROPHYSIOLOGY CONSULTATION REPORT REFERRING PHYSICIAN: Laquita Christianson MD I am seeing Mr. 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 His problems are: 1. Persisting atrial fibrillation with rapid ventricular rates. A. No prior documentation of atrial fibrillation prior to this admission. 2. Structurally normal heart with left ventricular ejection fraction 60% to 65%, mild mitral regurgi tation, moderate left atrial enlargement. 3. History of ethanol use. CORONARY RISK FACTORS: None. ALLERGIES: None. MEDICATIONS AT HOME: None. SUBJECTIVE: Mr. Hughes has been experiencing some heart fluttering sensations for about 24 hours prio r to admit yesterday. He woke up with it about 3:00 a.m. with heart racing, which episodes came and went intermittently. He got some mild lightheadedness, but does not pass out. He denies chest pain. There is some arm numbness associated with it. Eventually, he came to the ER and was found to be i n newly found atrial fibrillation with rapid rate. He was started on esmolol and then eventually dil tiazem drip as well. His rates were getting under some control, but after turning off the IV drips, his heart rates again increased over 130 to 140 range. Currently, he is asymptomatic. Denies angina. No CHF-like symptoms. No PND, orthopnea, or lower ex tremity edema. There were no fever, chills, or cough. He denies stroke-like symptoms or bleeding is sues. No abdominal discomfort. No signs of infection is identified. Rest of 12-point system is oth erwise unremarkable. PAST MEDICAL HISTORY: Negative for prior history of heart disease or heart attacks. He has been hav ing regular medical screening at his workplace without issues. He has never been told he had atrial fibrillation. He did have history of appendectomy, hernia repair, and right shoulder surgery in the past. FAMILY HISTORY: Significant for father having valvular heart disease. SOCIAL HISTORY: The patient drinks 5-12 beers a day. He never had withdrawal symptoms on abstinence . Denies ETOH or drug abuse. He works in [employer]. OBJECTIVE: VITAL SIGNS: Blood pressure 130/79, heart rate 121, respiratory rate 16, temperature 98.4 degrees Fa hrenheit. GENERAL: He is an alert and oriented man in no apparent distress. NECK: Supple. Jugular veins are not distended. CHEST: Coarse without crackles. CARDIAC: Heart sounds are irregular. Regular ____. No murmur or gallop is appreciated. PMI is non palpable. ABDOMEN: Benign. Bowel sounds are positive. EXTREMITIES: Lower extremities without edema, clubbing, or cyanosis. Pulses are adequate. NEUROLOGIC: The patient is nonfocal. MUSCULOSKELETAL: No joint swelling or deformities. SKIN: Without rash. DATABASE: EKGs were reviewed revealing atrial fibrillation with rates of initially 162 beats per min shea. Subsequent EKG shows more moderate rate about 147 beats per minute. No ST-T changes are seen. Occasional coarse atrial fibrillation is also seen. Some milder bradycardia is seen on the diltiaze m drip, which was then stopped. MEDICATIONS: His medication list currently include aspirin; digoxin 0.25 mg IV, then 0.125 mg daily; diltiazem; folic acid; ondansetron; sotalol 120 twice a day; thiamine. LABORATORY DATA: White count 6.2, hemoglobin 17.9, platelet count is 169. Sodium 139, potassium 4.5 , BUN is 13, creatinine 0.82. INR is 1. ASSESSMENT AND PLAN: Mr. Hughes is a pleasant 62-year-old man with prior history of excessive alcohol use, but no major medical issues, who is now presenting with sustained palpitations and he is indeed stuck in atrial fibrillation with relative rapid rates. He had some tachybrady issues with IV dilti azem, but he is not very profoundly symptomatic beyond the dizziness and lightheadedness with very ra pid rates. We discussed the treatment options. I agree with initiative therapy with anticoagulation, although I would increase his Lovenox to a full therapeutic level. He might be considered also for oral antico agulation on discharge. He might benefit from cardioversion as Dr. Christianson is already planning. His CH ADS-VASc score is relatively low on the other hand. We also discussed alternative treatment options. He is already on sotalol and I detailed the pros an d cons about long-term antiarrhythmic therapy. Also, we discussed the option of pulmonary venous iso lation, which could be not unreasonable, especially in view of his difficulty with ventricular rate c ontrol to be expedited and having done trials of antiarrhythmic therapy. I gave him the option of considering this to proceed with cardioversion and sotalol therapy versus pu lmonary venous isolation procedure possibly early next week. He might need JAKE prior to that if it i s in the plan. Thank you again for allowing me to participate in the care of this patient.
[2018-01-14] MEDS: Sotalol HCl 80 MG TAB PO SCH ×2 (14:46→20:36)
[2018-01-14] MEDS: Digoxin 0.125 MG TAB PO SCH (14:46)
--- NOTE | 2018-01-14 16:34 | PDOC.CTH ---
Cardiology Progress Note - Subjective He is doing well. No new issues. Currently in sinus rhythm - Objective Vital Signs Temp Pulse Resp BP BP Pulse Ox 01/14/18 14:46 57 L 01/14/18 07:10 98.1 F 59 L 16 120/85 95 01/14/18 04:38 97.9 F 64 12 105/67 91 L Weight 192 lb 9.6 oz 01/13/18 01/14/18 01/15/18 06:59 06:59 06:59 Intake Total 900 2277 Output Total 1475 2385 Balance -575 -108 - Physical Examination General/Neuro: alert & oriented x3, NAD Neck: no JVD present Lungs: CTA, unlabored respirations Heart: RRR Abdomen: NT/ND Extremities: other: (no edema.) - Telemetry Telemetry Rhythm: NSR - Labs Result Diagrams: 01/12/18 09:07 01/13/18 04:05 Troponin/CKMB CK-MB (CK-2) 2.6 ng/mL (0-6.6) 01/12/18 09:07 Troponin I Less than 0.010 ng/mL (< 0.028) 01/12/18 15:18 - Assessment/Plan 1. Afib RVR, currently back in sinus. 2. Alcohol use PLAN: - Continue to monitor on telemetry due to initiation of Sotalol. Needs 48 to 72 hrs to make sure QT is not lengthening. - ECG in the morning.
[2018-01-14] MEDS: Thiamine HCl 200 MG/2 ML VIAL SLOW IVP SCH (17:45)
--- NOTE | 2018-01-15 07:49 | PDOC.FM ---
- Subjective Subjective: Patient doing very well this AM. Having no SOB, CP, heart racing, lightheadedness, or dizziness. He is anxious to go home. - Objective MAR Reviewed: Yes Vital Signs & Weight: Vital Signs (12 hours) Temp Pulse Resp BP BP Pulse Ox 01/15/18 03:27 97.2 F L 60 16 112/67 93 L 01/14/18 21:16 130/75 01/14/18 20:36 68 Weight Weight 87.77 kg Most Recent Monitor Data Heart Rate from ECG 54 NIBP 95/71 NIBP BP-Mean 82 Respiration from ECG 13 SpO2 96 I&O: 01/14/18 01/15/18 01/16/18 06:59 06:59 06:59 Intake Total 2277 Output Total 2385 500 Balance -108 -500 Result Diagrams: 01/12/18 09:07 01/13/18 04:05 <Shonna Hernandez - Last Filed: 01/15/18 07:47> - Objective Vital Signs & Weight: Vital Signs (12 hours) Temp Pulse Resp BP BP Pulse Ox 01/15/18 09:08 77 01/15/18 08:40 98.2 F 65 18 140/73 93 L 01/15/18 03:27 97.2 F L 60 16 112/67 93 L Weight Weight 193 lb 8 oz Most Recent Monitor Data Heart Rate from ECG 54 NIBP 95/71 NIBP BP-Mean 82 Respiration from ECG 13 SpO2 96 I&O: 01/14/18 01/15/18 01/16/18 06:59 06:59 06:59 Intake Total 2277 Output Total 2385 500 Balance -108 -500 Result Diagrams: 01/12/18 09:07 01/13/18 04:05 <Estevan Puentes D - Last Filed: 01/15/18 10:28> Phys Exam - Physical Examination Constitutional: NAD HEENT: moist MMs Respiratory: no wheezing, no rales, no rhonchi, clear to auscultation bilateral Cardiovascular: RRR, no significant murmur, no rub Gastrointestinal: soft, non-tender, no distention, positive bowel sounds Musculoskeletal: no edema, pulses present Neurological: non-focal, moves all 4 limbs Psychiatric: normal affect, A&O x 3 Skin: normal turgor, cap refill <2 seconds <Shonna Hernandez - Last Filed: 01/15/18 07:47> Dx/Plan (1) Atrial fibrillation with RVR Code(s): I48.91 - UNSPECIFIED ATRIAL FIBRILLATION Status: Acute (2) Alcohol abuse Code(s): F10.10 - ALCOHOL ABUSE, UNCOMPLICATED Status: Acute - Plan Plan: Atrial fibrillation with RVR This is new onset a-fib with RVR. The patient denies any h/o a-fib previously. The patient's initial HR was 161 and it improved to the 130's after an esmolol bolus and he was started on an esmolol gtt in the ED. Cardiac enzymes negative x3. TSH, mag, phos WNL. UDS negative. Echo showed EF 60-65% with moderately dilated L atrium. Patient has converted to NSR with intermittent episodes of sinus bradycardia over the past 2 days. -Monitor on tele -Continue sotalol 120mg BID per cardiology -Continue digoxin 0.125mg daily per cardiology -CHADs-Vasc score 0 - low risk for embolic event, so will continue aspirin for now. -Dr. Christianson with cards has been consulted, appreciate recs -Will discuss dispo plan with cards today -Patient does not have PCP, so gave him my card to f/u with me in clinic for close f/u. -Repeat EKG today to check for prolonged QTc Alcohol Abuse Patient drinks 5-12 beers daily, but has days where he skips without signs of withdrawal. The EtOH abuse is likely the cause of his a-fib with RVR. Have discussed extensively with patient the importance of cessation of alcohol use. No current signs of withdrawal. ASE scores 4 -ASE protocol, monitor for signs/symptoms of withdrawal -Thiamine -Folic Acid -Multivitamin <Shonna Hernandez - Last Filed: 01/15/18 07:47> Attending Addendum - Attending Addendum Date/Time: 01/15/18 1027 I personally evaluated the patient and discussed the management with Dr. Hernandez I agree with the History, Examination, Assessment and Plan documented above with any addition or exceptions noted below. The patient has been in NSR. His episode of a-fib with RVR has resolved and been treated with sotalol and digoxin. Will check an EKG today to monitor for prolonged QTc and will discuss possible discharge today with cardiology as patient is stable. <Estevan Puentes Last Filed: 01/15/18 10:28>
[2018-01-15] MEDS: Aspirin 325 MG TAB PO SCH (09:08)
[2018-01-15] MEDS: Digoxin 0.125 MG TAB PO SCH (09:08)
[2018-01-15] MEDS: Multivitamin W/ Minerals 1 TAB PO SCH (09:09)
[2018-01-15] MEDS: Sotalol HCl 80 MG TAB PO SCH (09:10)
[2018-01-15] MEDS: Folic Acid 1 MG TAB PO SCH (09:12)
[2018-01-15] MEDS: Enoxaparin Sodium 100 MG/ML SYRINGE SC SCH (09:13)
[2018-01-15 09:16] VITALS: TEMP 98.2
[2018-01-15 13:42] VITALS: BP 121/70
--- NOTE | 2018-01-15 16:23 | PDOC.CTH ---
Cardiology Progress Note - Subjective He is doing well. He remains in sinus. ECG showed sinus bradycardia this morning Qt stable. - Objective Vital Signs Temp Pulse Resp BP Pulse Ox 01/15/18 13:41 98.2 F 54 L 18 121/70 94 L 01/15/18 09:08 77 01/15/18 08:45 98.2 F 77 18 01/15/18 08:40 98.2 F 65 18 140/73 93 L Weight 193 lb 8 oz 01/14/18 01/15/18 01/16/18 06:59 06:59 06:59 Intake Total 2277 Output Total 2385 500 Balance -108 -500 - Physical Examination General/Neuro: alert & oriented x3, NAD Neck: no JVD present Lungs: CTA, unlabored respirations Heart: RRR Abdomen: NT/ND Extremities: other: (no edema) - Telemetry Telemetry Rhythm: S Shane - Labs Result Diagrams: 01/12/18 09:07 01/13/18 04:05 Troponin/CKMB CK-MB (CK-2) 2.6 ng/mL (0-6.6) 01/12/18 09:07 Troponin I Less than 0.010 ng/mL (< 0.028) 01/12/18 15:18 - Assessment/Plan 1. Afib RVR, currently back in sinus. 2. Alcohol use PLAN: - QT stable. He remains in sinus. Has been on Sotalol since without significant QT lengthening. - Eliquis for stroke prophylaxis. - Follow up with Dr. Christianson in 1 month.
--- NOTE | 2018-01-15 23:49 | DIS-2 ---
DATE OF ADMISSION: 01/12/2018 DATE OF DISCHARGE: 01/15/2018 ADMITTING ATTENDING: Leidy Jackson M.D. DISCHARGE ATTENDING: Estevan Puentes M.D. RESIDENT: Shonna Hernandez MD. CONSULTATIONS: Dr. Christianson with Cardiology. PROCEDURES: None. IMAGING: Echo showed ejection fraction of 60%-65% and moderately dilated left atrium. PRIMARY DIAGNOSES: 1. New-onset atrial fibrillation with rapid ventricular response. 2. Alcohol abuse. DISCHARGE MEDICATIONS: 1. Sotalol 120 mg p.o. b.i.d. 2. Aspirin 325 mg p.o. daily. DISCONTINUED MEDICATIONS: None. 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 The patient was found to be in at rial fibrillation with RVR at a heart rate up to the 160s. The patient was initially started on esmo lol drip and then converted over to diltiazem drip. The patient was then also started on sotalol 80 mg as well as digoxin. The patient remained in atrial fibrillation. He did have an episode on his f irst time of hospitalization where his heart rate got down into the 40s and the diltiazem drip had to be stopped and then the heart rate creep back up overnight to the 120s. The patient was then restar ja on his sotalol and later that afternoon back on the diltiazem drip. The patient's sotalol dose w as increased to 120 mg and the patient converted into normal sinus rhythm. The patient remained in n ormal sinus rhythm the rest of his hospitalization with intermittent periods of sinus bradycardia. T he patient extremes no QTC prolongation and was watched on sotalol for 72 hours with an EKG at the en d of his hospitalization and had no signs of QT prolongation. The patient had a CHADS VASc score of 0, so he was just kept on his home dose of aspirin. The patient had negative cardiac enzymes and his electrolytes were within normal limits. His UDS was negative. The most likely cause for his fibril lation with RVR had to do with his alcoholism and his age. The patient does not have a primary care doctor and so he was given information for [facility] to follow up in our clinic. The valeria ent was asymptomatic after he converted into normal sinus rhythm and remained that way the rest of hi s hospitalization. The patient was counseled about the effects of alcohol use and counseled about al cohol cessation. The patient's A scores were monitored and showed no signs or symptoms of withdrawal . The patient was treated with thiamine, multivitamin and folic acid throughout his hospitalization. DISPOSITION: Stable. DISCHARGE INSTRUCTIONS: 1. Location: Home. 2. Diet: Heart healthy. 3. Activity: As tolerated. 4. Followup: Follow up with [facility] within [address] Christianson within 3 weeks.
--- NOTE | 2018-01-16 12:46 | EKG ---
Test Reason : Blood Pressure : / mmHG Vent. Rate : 049 BPM Atrial Rate : 049 BPM P-R Int : 138 ms QRS Dur : 088 ms QT Int : 442 ms P-R-T Axes : 033 -05 018 degrees QTc Int : 399 ms Marked sinus bradycardia Possible Left atrial enlargement Abnormal ECG Confirmed by DR. Estefania MEZA ([id number]) on 01/16/2018 12:45:51 PM Referred By: Confirmed By:DR. Estefania MEZA
== END 2018-01-15 16:29 | disposition home or self-care (01) | DRG 310 ==
LOC: ERS 08:38 → CCU 13:06 → IMCU/EMU 21:55 → 2NO 01-13 12:40
PROVIDERS: ADMIT Family Medicine; ATTEND Family Medicine
DX: I48.91 Unspecified atrial fibrillation (principal); Z79.899 Other long term (current) drug therapy; F10.10 Alcohol abuse, uncomplicated; Z79.82 Long term (current) use of aspirin
CPT/HCPCS: 36415; 71045; 80048; 80053; 80306; 82550; 82553; 83735; 84100; 84443; 84484; 85025; 85610; 93005; 93010; 93306; 94760; A4216; J1160; J1650; J3411; J7050

== ENCOUNTER 2018-04-26 07:15 | Inpatient (IN) | payer BC ==
[2018-04-26] MEDS ORDERED: Diltiazem 125 MG in Sodium Chloride 0.9% 100 ML IVPB SCH ×2 (07:30→11:30)
[2018-04-26 07:46] LABS: #Eosinphils 0.4 thou/uL (0.0-0.7); #Lymphocytes 1.5 thou/uL (1.20-3.40); #Monocytes 0.6 thou/uL (0.11-0.59); %Basophils 0.5 % (0.0-1.0); %Eosinophils 5.4 % (0.0-10.0); %Monocytes 9.6 % (0.0-10.0); %Neutrophils 61.6 % (42.0-75.0); Hemoglobin 16.9 g/dL (14.0-18.0); Mean Corpuscular HGB CONC 34.6 g/dL (32.0-36.0); Mean Corpuscular Hemoglobin 33.1 pg (27.0-31.0); Mean Corpuscular Volume 95.5 fL (78.0-98.0); Mean Platelet Volume 8.5 fL (7.4-10.4); Platelet Count 148 thou/uL (130-400); RBC Distribution Width 11.6 % (11.5-14.5); Red Blood Cell (RBC) Count 5.11 mill/uL (4.70-6.10); White Blood Cell (WBC) Count 6.5 thou/uL (4.8-10.8)
[2018-04-26 08:11] LABS: ALT (SGPT) 25 U/L (8-55); AST (SGOT) 24 U/L (5-34); Albumin 4.3 g/dL (3.4-4.8); Alkaline Phosphatase 61 U/L (40-150); Anion Gap 12 mmol/L (10-20); BUN (Urea Nitrogen) 13 mg/dL (8.4-25.7); Bilirubin, Total 1.1 mg/dL (0.2-1.2); CK (CPK) 170 U/L (30-200); Calc. Creatinine Clearance 0 mL/min (70-130); Calcium 9.3 mg/dL (7.8-10.44); Carbon Dioxide 24 mmol/L (23-31); Chloride 105 mmol/L (98-107); Estimated GFR-MDRD 90; Globulin 2.5 g/dL (2.4-3.5); Glucose 115 mg/dL (80-115); Potassium 4.2 mmol/L (3.5-5.1); Protein, Total 6.8 g/dL (5.8-8.1); Sodium 137 mmol/L (136-145)
[2018-04-26 08:16] LABS: CKMB 3.1 ng/mL (0-6.6); Troponin I Less than 0.010 ng/mL (< 0.028)
--- NOTE | 2018-04-26 09:24 | RAD ---
RADIOGRAPH CHEST 1 VIEW: DATE: 04/26/2018 TIME: 7:01 a.m. HISTORY: A 63-year-old male with chest pain. FINDINGS: There are no air space densities, pulmonary edema, pneumothorax, or cardiomegaly. The lateral costop hrenic angles are sharp. IMPRESSION: No acute cardiopulmonary findings. jeimy [] POS: SOPHIA
[2018-04-26 11:18] LABS: Troponin I Less than 0.010 ng/mL (< 0.028)
--- NOTE | 2018-04-26 11:25 | PDOC.FPRHP ---
- History of Present Illness Chief Complaint: palpitations History of Present Illness: 63 yo male with pmxh of afib and hld presents with palpitations that woke him up from sleep last night. He states one month ago he was diagnosed with afib and placed on sotalol and eliquis, but he recently went to Dr. Christianson and was weaned off the Eliquis and the sotalol was decreased to 80 for his heart rate being low. He also endorsed some back pain between his shoulder blades during the time he had palpitations, but this has resolved. He denies radiation down his arms, denies n/v with episode or diaphoresis. he states he had a stress test recently that was normal. His last echo was in January 2018 when he was diagnosed with afib with rvr and it showed an EF of 60-65% and no diastolic dysfunction. He also notes that he has tingling and numbness in his buttocks at times sometimes worse with movement. He also complains of a rash on his arms since taking atorvastatin. It is red and does not itch. - Allergies/Adverse Reactions Allergies Allergy/AdvReac Type Severity Reaction Status Date / Time No Known Allergies Allergy Verified 01/12/18 14:56 - Home Medications Medication Instructions Recorded Confirmed Type Aspirin 325 mg PO DAILY 01/12/18 01/12/18 History Apixaban [Eliquis] 5 mg PO BID 01/15/18 01/15/18 History Apixaban [Eliquis] 5 mg PO BID #60 tablet 01/15/18 Rx Sotalol HCl [Betapace] 120 mg PO BID #60 tab 01/15/18 Rx - History PMHx: HLD, paroxsysmal afib, BCC, sinus bradycardia, actinic keratosis PSHx: appendectomy, right shoulder surgery FHx: Father had valve replaed Social: prior alcohol use; denies alcohol use for >1 mo; denies smoking or drug use - Review of Systems General: denies: fever/chills, weight/appetite/sleep changes ENT: denies: nasal congestion, rhinorrhea Respiratory: denies: cough, congestion Cardiovascular: reports: other (palpitations). denies: chest pain, palpitation , edema, orthopnea Gastrointestinal: denies: nausea, vomiting Genitourinary: denies: incontinence, dysuria Musculoskeletal: reports: pain (midthoracic (resolved now)). denies: tenderness , stiffness Neurological: reports: numbness (numbness/tingling in buttocks that comes and go and is worse with movement, bilateral). denies: syncope Psychological: denies: anxiety, depression - Vital signs BP: [] HR: [] RR: [] Tmax: [] Pox: []% on [] Wt: [] - Physical Exam Constitutional: NAD, awake, alert and oriented, well developed HEENT: normocephalic and atraumatic, PERRLA, EOMI, no scleral icterus, grossly normal vision, TM's clear and intact, grossly normal hearing, MMM Neck: supple, no LAD, no JVD, no thyromegaly Heart: RRR, normal S1/S2, no murmurs/rubs/gallops, pulses present, no edema Lungs: CTAB, no respiratory distress, good air movement, no wheezing, no retractions Abdomen: soft, non-tender, bowel sounds present Musculoskeletal: normal structure Neurological: no focal deficit, CN II-XII intact, normal sensation -Neurological: 5/5 strength in upper and lower extremities Skin: no rash/lesions, good turgor -Heme/Lymphatic: rash bilateral, macules on arms bilaterally Psychiatric: normal mood and affect FMR H&P: Results - Labs Result Diagrams: 04/26/18 07:35 04/26/18 07:35 Lab results: WBC 6.5 thou/uL (4.8-10.8) 04/26/18 07:35 Hgb 16.9 g/dL (14.0-18.0) 04/26/18 07:35 Hct 48.8 % (42.0-52.0) 04/26/18 07:35 MCV 95.5 fL (78.0-98.0) 04/26/18 07:35 Plt Count 148 thou/uL (130-400) 04/26/18 07:35 Neutrophils % 61.6 % (42.0-75.0) 04/26/18 07:35 Sodium 137 mmol/L (136-145) 04/26/18 07:35 Potassium 4.2 mmol/L (3.5-5.1) 04/26/18 07:35 Chloride 105 mmol/L (98-107) 04/26/18 07:35 Carbon Dioxide 24 mmol/L (23-31) 04/26/18 07:35 BUN 13 mg/dL (8.4-25.7) 04/26/18 07:35 Creatinine 0.86 mg/dL (0.6-1.3) 04/26/18 07:35 Glucose 115 mg/dL (80-115) 04/26/18 07:35 Calcium 9.3 mg/dL (7.8-10.44) 04/26/18 07:35 Total Bilirubin 1.1 mg/dL (0.2-1.2) 04/26/18 07:35 AST 24 U/L (5-34) 04/26/18 07:35 ALT 25 U/L (8-55) 04/26/18 07:35 Alkaline Phosphatase 61 U/L (40-150) 04/26/18 07:35 Creatine Kinase 170 U/L (30-200) 04/26/18 07:35 CK-MB (CK-2) 3.1 ng/mL (0-6.6) 04/26/18 07:35 Serum Total Protein 6.8 g/dL (5.8-8.1) 04/26/18 07:35 Albumin 4.3 g/dL (3.4-4.8) 04/26/18 07:35 - EKG Interpretation EKG: afib with rvr - Radiology Interpretation Chest x-ray Status: image reviewed by me, report reviewed by me Additional comment: no acute cardiopulmonary process Other Additional comment: Echo in January 2018: EF 60-65%; no diastolic dysfunction FMR H&P: A/P - Problem List (1) Atrial fibrillation with RVR Current Visit: No Status: Acute Code(s): I48.91 - UNSPECIFIED ATRIAL FIBRILLATION (2) HLD (hyperlipidemia) Current Visit: Yes Status: Acute Code(s): E78.5 - HYPERLIPIDEMIA, UNSPECIFIED (3) BCC (basal cell carcinoma) Current Visit: Yes Status: Acute Code(s): C44.91 - BASAL CELL CARCINOMA OF SKIN, UNSPECIFIED (4) History of alcohol use Current Visit: Yes Status: Acute Code(s): Z87.898 - PERSONAL HISTORY OF OTHER SPECIFIED CONDITIONS - Plan 63 yo man with pmhx of pAF with RVR admitted in January 2018 on sotalol and aspirin daily, presents with palpitations, found to be in afib with RVR, admitted for this. 1.)Afib with RVR- -Admitted to inpatient tele -Started on dilt drip in ED at 5ml/hr; will increase to 10ml/hr as pt is still in the 100s -Plan to titrate dilt as needed -Echo in January 2018 no signs of CHF -Currently no signs of infection -Recent decrease in Sotalol to 80mg d/t bradycardia -Recent stress with Dr. Christianson was normal per pt -Consulted cardiology for recommendations. This is a pt of Dr. Christianson -Last admission, etiology of afib was suspected alcohol abuse, however this time the patient states he has not a drink in over a month. -Repeat EKG 1500 -Repeat CBC, BMP in am 2. HLD- -Atorvastatin causes a rash -Will switch to pravastatin as pt is not on a high intensity dose 3.Hx of alcohol abuse- ->1 mo since last drink CODE STATUS: FULL DVT prophylaxis: lovenox FMR H&P: Upper Level - Plan Date/Time: 04/26/18 3893 I, [], have evaluated this patient and agree with findings/plan as outlined by internet marketing consultant resident. Pertinent changes/additions are listed here. Attending Addendum - Attending Addendum Date/Time: 04/26/18 5500 I personally evaluated the patient and discussed the management with Dr. Meredith. I agree with the History, Examination, Assessment and Plan documented above with any addition or exceptions noted below. The patient presented with palpitations that began overnight. He has a history of a.fib and see Dr. Christianson. He was found to be in a.fib with RVR. He is on Diltiazem drip at 5. Will titrate up as he is still tachycardic. Patient is starting to feel more comfortable. Will contact Dr. Christianson.
[2018-04-26 14:14] LABS: Troponin I Less than 0.010 ng/mL (< 0.028)
[2018-04-26 14:22] VITALS: BMI 26.2
--- NOTE | 2018-04-26 17:33 | EKG ---
Test Reason : TIMED Blood Pressure : / mmHG Vent. Rate : 099 BPM Atrial Rate : 357 BPM P-R Int : 000 ms QRS Dur : 086 ms QT Int : 358 ms P-R-T Axes : 000 -15 -38 degrees QTc Int : 459 ms Atrial fibrillation with premature ventricular or aberrantly conducted complexes Nonspecific T wave abnormality , probably digitalis effect Abnormal ECG When compared with ECG of 26-APR-2018 07:20, (Unconfirmed) No significant change was found Confirmed by FLOR SKY ([id number]) on 04/26/2018 5:32:28 PM Referred By: NICOLE Graham Confirmed By:FLOR SKY
[2018-04-26] MEDS: Diltiazem 125 MG in Sodium Chloride 0.9% 100 ML IVPB SCH (20:44)
--- NOTE | 2018-04-27 | CON ---
DATE OF CONSULTATION: 04/26/2018 HISTORY: Timothy Hughes is a 63-year-old white male who has been evaluated by Dr. Christianson during hospitalization in 01/2018. For several years, he has been complained of palpitations that would resolve on their own. Then, when he was admitted on 01/12/2018, he woke at 3 in the morning with a rapid heartbeat that would not resolve. He came to the emergency room. He was in atrial fibrillation with rate of 160 per minute. He was given IV esmolol and then transitioned to IV diltiazem. He was started on sotalol 80 mg and then 120 mg b.i.d. and spontaneously converted to sinus rhythm. It was felt that his [id number] score was 0 and that he only needed aspirin for anticoagulation. Echo revealed ejection fraction of 60%-65% with moderate left atrial enlargement , mild mitral regurgitation, trivial aortic regurgitation somewhat thickened aortic valve leaflets and trace tricuspid regurgitation. During that hospitalization, he was also seen by Dr. Arroyo and discussion was held regarding possible atrial fibrillation ablation. On followup, he was apparently found to have significant bradycardia and sotalol was reduced from 120 to 80 mg b.i.d. He had one short recurrence, but then went back to sinus. He did undergo Lexiscan Cardiolite testing on 2017 in the office. There was no evidence of reversible ischemia. There is mild global hypokinesis. He then awoke this morning with feeling of very rapid heartbeat and came back to the emergency room. He again was in atrial fibrillation with fast ventricular response. PAST MEDICAL HISTORY: Paroxysmal atrial fibrillation. PAST SURGICAL HISTORY: Right shoulder surgery, appendectomy, hernia repair. FAMILY HISTORY: Negative for coronary artery disease. SOCIAL HISTORY: He does not smoke. He drinks 5-12 beers per day. REVIEW OF SYSTEMS: Twelve point review of systems otherwise unremarkable. PHYSICAL EXAMINATION: VITAL SIGNS: Blood pressure 118/63, pulse of 82 and irregularly irregular. HEENT: PERRL. NECK: Supple. CHEST: Clear. CARDIAC: S1, S2 normal, without any S3, S4 or murmurs. ABDOMEN: Normal bowel sounds, without tenderness. EXTREMITIES: Revealed no clubbing, cyanosis or edema. NEUROLOGIC: Grossly intact. LABORATORY DATA: EKG revealed atrial fibrillation with a rate of 99 per minute with nonspecific T-wave changes. An earlier EKG revealed atrial fibrillation with heart rate of 128 per minute. CBC is unremarkable. Sodium 137, potassium 4.2, chloride 105, carbon dioxide 24, BUN 13, creatinine 0.86. Troponin I is normal x3. IMPRESSION: 1. Recurrence of atrial fibrillation on lower dose of sotalol. He apparently was having significant bradycardia and the dose was reduced from 120 to 80 b.i.d. and now he has recurrence. 2. ETOH abuse. PLAN: For the time being, I would fully anticoagulate him with Lovenox 1 mg/kg b.i.d. He currently is on a Cardizem drip and his rate is well controlled and can certainly transition to p.o. Cardizem in the morning. Electrophysiology will be consulted regarding possible ablation. CHRIS
[2018-04-27 05:16] LABS: #Basophils 0.1 thou/uL (0.0-0.2); #Eosinphils 0.5 thou/uL (0.0-0.7); #Monocytes 0.7 thou/uL (0.11-0.59); #Neutrophils 5.1 thou/uL (1.40-6.50); %Basophils 0.7 % (0.0-1.0); %Eosinophils 5.5 % (0.0-10.0); %Lymphocytes 24.3 % (21.0-51.0); %Monocytes 8.7 % (0.0-10.0); %Neutrophils 60.9 % (42.0-75.0); Hemoglobin 16.8 g/dL (14.0-18.0); Mean Corpuscular HGB CONC 34.3 g/dL (32.0-36.0); Mean Corpuscular Hemoglobin 32.7 pg (27.0-31.0); Mean Corpuscular Volume 95.2 fL (78.0-98.0); Mean Platelet Volume 8.5 fL (7.4-10.4); Platelet Count 150 thou/uL (130-400); RBC Distribution Width 11.6 % (11.5-14.5); Red Blood Cell (RBC) Count 5.14 mill/uL (4.70-6.10); White Blood Cell (WBC) Count 8.4 thou/uL (4.8-10.8)
[2018-04-27 05:37] LABS: Anion Gap 11 mmol/L (10-20); BUN (Urea Nitrogen) 12 mg/dL (8.4-25.7); Calc. Creatinine Clearance 110 mL/min (70-130); Carbon Dioxide 26 mmol/L (23-31); Chloride 107 mmol/L (98-107); Estimated GFR-MDRD Greater than 90; Glucose 96 mg/dL (80-115); Potassium 3.7 mmol/L (3.5-5.1); Sodium 140 mmol/L (136-145)
--- NOTE | 2018-04-27 05:41 | PDOC.FM ---
- Subjective Subjective: 63 yo male with pmxh of afib and hld presents with palpitations that woke him up from sleep. He states one month ago he was diagnosed with afib and placed on sotalol and eliquis, but he recently went to Dr. Christianson and was weaned off the Eliquis and the sotalol was decreased from 120-80 for bradycardia. He also endorsed some back pain between his shoulder blades during the time he had palpitations, but this has resolved. He denies radiation down his arms, denies n /v with episode or diaphoresis. He states he had a stress test recently that was normal. His last echo was in January 2018 when he was diagnosed with afib with rvr and it showed an EF of 60-65% and no diastolic dysfunction. Overnight patient had no issues, he remained in afib rate controlled in the 80s- 90s. On exam this morning the patient has no complaints. He denies any SOB, palpitations or chest pain. We talked about his possible ablation procedure and the patient asked about his code status. He expressed that he wishes to be DNI. No other complaints at this time. - Objective MAR Reviewed: Yes Vital Signs & Weight: Vital Signs (12 hours) Temp Pulse Resp BP Pulse Ox 04/27/18 04:00 97.6 F 68 16 102/62 95 04/26/18 23:58 97.8 F 88 20 109/64 95 04/26/18 20:44 97.7 F 82 20 95 04/26/18 20:41 97.7 F 82 20 118/63 95 Weight Weight 86.228 kg Result Diagrams: 04/27/18 04:54 04/27/18 04:54 <Jessica Michael - Last Filed: 04/27/18 11:31> - Objective Vital Signs & Weight: Vital Signs (12 hours) Temp Pulse Resp BP Pulse Ox 04/27/18 16:19 97.4 F L 88 18 113/74 97 04/27/18 11:49 97.5 F L 74 16 118/82 98 04/27/18 08:45 98.0 F 71 16 96 04/27/18 07:25 98.0 F 71 16 110/77 96 Weight Weight 86.228 kg I&O: 08/15/18 08/16/18 08/17/18 06:59 06:59 06:59 Intake Total 820 Output Total 1125 Balance -305 Result Diagrams: 04/27/18 04:54 04/27/18 04:54 <Kayleen Jerezherine - Last Filed: 04/27/18 19:24> Phys Exam - Physical Examination Constitutional: NAD HEENT: PERRLA, moist MMs Neck: supple, full ROM Respiratory: no wheezing, clear to auscultation bilateral Cardiovascular: no significant murmur irregularly irregular Gastrointestinal: soft, non-tender, positive bowel sounds Musculoskeletal: pulses present Neurological: non-focal, moves all 4 limbs Psychiatric: normal affect, A&O x 3 Skin: no rash, normal turgor, cap refill <2 seconds <Jessica Michael - Last Filed: 04/27/18 11:31> Dx/Plan (1) BCC (basal cell carcinoma) Code(s): C44.91 - BASAL CELL CARCINOMA OF SKIN, UNSPECIFIED Status: Acute (2) HLD (hyperlipidemia) Code(s): E78.5 - HYPERLIPIDEMIA, UNSPECIFIED Status: Acute (3) History of alcohol use Code(s): Z87.898 - PERSONAL HISTORY OF OTHER SPECIFIED CONDITIONS Status: Acute (4) Atrial fibrillation with RVR Code(s): I48.91 - UNSPECIFIED ATRIAL FIBRILLATION Status: Acute - Plan Plan: 63 yo man with pmhx of pAF with RVR admitted in January 2018 on sotalol and aspirin daily, presents with palpitations, found to be in afib with RVR, rate controlled and switching to PO cardizem today with possible ablation later today. Afib with RVR - Last admission, etiology of afib was suspected alcohol abuse, however this time the patient states he has not a drink in over a month. This time could likely be due to the change in sotalol dosage - Admitted to inpatient tele - Will stop the drip this morning and transition to PO cardizem - Echo in January 2018 no signs of CHF - Currently no signs of infection - Recent decrease in Sotalol to 80mg d/t bradycardia - Recent stress with Dr. Christianson was normal per pt - Dr. Brown recs appreciated: recommmends switching to PO cardizem this AM. Consult EP for possible ablation. Fully anticoagulate patient on lovenox 1mg/kg BID. - Repeat CBC, BMP in am HLD - Atorvastatin causes a rash - Will switch to pravastatin as pt is not on a high intensity dose Hx of alcohol abuse - >1 mo since last drink CODE STATUS: FULL DVT prophylaxis: th lovenox DISPO: likely stay 1-2 days for rate control and possible ablation procedure Case discussed with Dr. Jerez <Jessica Michael - Last Filed: 04/27/18 11:31> (1) Atrial fibrillation with RVR Code(s): I48.91 - UNSPECIFIED ATRIAL FIBRILLATION Status: Acute (2) HLD (hyperlipidemia) Code(s): E78.5 - HYPERLIPIDEMIA, UNSPECIFIED Status: Acute (3) BCC (basal cell carcinoma) Code(s): C44.91 - BASAL CELL CARCINOMA OF SKIN, UNSPECIFIED Status: Acute (4) History of alcohol use Code(s): Z87.898 - PERSONAL HISTORY OF OTHER SPECIFIED CONDITIONS Status: Acute <Charla Jerez - Last Filed: 04/27/18 19:24> Attending Addendum - Attending Addendum Date/Time: 04/27/181922 I personally evaluated the patient and discussed the management with Dr. Michael. I agree with the History, Examination, Assessment and Plan documented above with any addition or exceptions noted below. The patient remains on diltiazem drip. Will attempt transition to PO diltiazem. Cardiology has recommended EP be consulted for possible ablation. <Charla Jerez - Last Filed: 04/27/18 19:24>
[2018-04-27] MEDS: Diltiazem 125 MG in Sodium Chloride 0.9% 100 ML IVPB SCH (07:01)
[2018-04-27] MEDS ORDERED: Enoxaparin Sodium 40 MG/0.4 ML SYRINGE SC SCH (09:00)
[2018-04-27] MEDS: Aspirin 325 MG TAB PO SCH (11:48)
[2018-04-27] MEDS: Enoxaparin Sodium 80 MG/0.8 ML SYRINGE SC SCH ×2 (11:48→20:53)
[2018-04-27] MEDS ORDERED: Diltiazem 125 MG in Sodium Chloride 0.9% 100 ML IVPB SCH (12:45)
[2018-04-27] MEDS: Flecainide 50 MG TAB PO SCH (20:52)
[2018-04-27] MEDS ORDERED: Flecainide 50 MG TAB PO SCH (21:00)
--- NOTE | 2018-04-27 21:51 | CON ---
DATE OF CONSULTATION: 04/27/2018 ELECTROPHYSIOLOGY CONSULTATION REFERRING PHYSICIAN: Matthew Brown MD USUAL WIRE WALKER: Laquita Christianson MD REASON FOR CONSULTATION: Recurrent atrial fibrillation with RVR. HISTORY OF PRESENT ILLNESS: Mr. Hughes is a patient known to us when he was previously admitted for a trial fibrillation in 01/2018, at which time he was diagnosed. At that time, he was placed on sotalo l 120 mg b.i.d. and spontaneously converted to sinus rhythm. He did fairly well on that dose, but wa s found to be bradycardic upon his followup appointment with Dr. Christianson and was transitioned to low-dos e sotalol at 80 mg b.i.d. Also, his CHADS2-VASc score is 0 and at his followup appointment, he was t ransitioned to aspirin alone for stroke prophylaxis. He was maintaining sinus rhythm to the best of his knowledge. When he is out of rhythm, he has been symptomatic with some dizziness, palpitations, and fluttering in his chest, which so far has been pretty accurate and correlates with his hospitaliz ations. After his dose was reduced to 80 mg twice a day, he does report that he had one brief episod e that spontaneously ended and converted back to sinus rhythm. Unfortunately, he began to experience some fluttering sensations and palpitations beginning on Tuesday morning and that progressed through out the day and eventually prompted him to present to the emergency room for further evaluation, wher e he was found to be in atrial fibrillation with RVR once again. He was placed on a diltiazem drip a nd the sotalol was discontinued, and I do not see that he is being given any sotalol since he was adm itted to the hospital. Initially, his heart rate is fairly well controlled on a diltiazem drip at 5 mg an hour, but this morning he began to have additional RVR episodes with rates between 130 and 140 beats per minute and his diltiazem was then increased to 7.5 mg per hour, which has offered better ra te control. Currently, Mr. Hughes is feeling fairly well. He does endorse some occasional palpitations and some o ccasional heart racing, but denies any chest pain, pressure, syncope, near syncope, stroke, or stroke -like symptoms. He does not have any other cardiac concerns or complaints. REVIEW OF SYSTEMS: A 12-point review of systems was conducted and is negative except that listed abo ve in the HPI. ALLERGIES: No known drug allergies. HOME MEDICATIONS: [place] 40 grams as directed, Lipitor 20 mg at bedtime, aspirin 325 mg daily, sotalo l 80 mg p.o. b.i.d. FAMILY HISTORY: Positive for father with valvular heart disease. SOCIAL HISTORY: History of alcohol abuse and quit in 01/2018. 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 He lives alone in his personal home. He denies any current tobacco or drug abuse. OBJECTIVE: VITAL SIGNS: Most recent vital signs, 97.5 degrees Fahrenheit, pulse 74, respirations 16, oxygen is 98% on room air, blood pressure 118/82. GENERAL: He is alert and oriented. His speech is clear. His affect is appropriate. He is a good h istorian. HEENT: He is normocephalic, atraumatic. His sclerae are anicteric. His EOMs are intact and oral mu cosa is moist and pink with adequate dentition. NECK: Supple without jugular venous distention. His thyroid is nonpalpable. LUNGS: Clear to auscultation bilaterally without wheezes, crackles, or rhonchi noted. HEART: His heart rate is irregularly irregular and occasionally rapid with a variable S1. His PMI i s nondisplaced. EXTREMITIES: Warm and dry to touch without clubbing, cyanosis, or edema. ABDOMEN: Benign with positive bowel sounds throughout and hepatojugular reflex is negative. NEUROLOGIC: Grossly intact and nonfocal and his gait was stable when transitioning from the chair to the bed. DATA BASE: Telemetry and EKGs were personally reviewed, which revealed atrial fibrillation with a va riable ventricular rate occasionally with RVR between 130 and 140, but initially in the 90-110 range. This is a coarse atrial fibrillation. LABORATORY DATA: WBC 8.4, hemoglobin 16.8, hematocrit is 48.9, platelet count is 150. Potassium 3.7 , BUN 11, creatinine 0.85. Serial troponins are negative. Echocardiogram from 01/12/2018 reveals an ejection fraction of 60%-65%. A chest x-ray was performed on 04/26/2018 and did not identify any ac huslia cardiopulmonary findings. IMPRESSION: 1. Recurrent atrial fibrillation with rapid ventricular response, refractory to sotalol therapy. No w, rate controlled on diltiazem drip. He has had some bradycardia with IV diltiazem in the past, but currently is steady. 2. CHADS-VASc score of 0 on aspirin and Lovenox for stroke prophylaxis currently. Previously on Danae amarilis temporarily. 3. Failed antiarrhythmic therapy of sotalol, which previously held him in sinus rhythm well at 120 m g b.i.d., but this did cause bradycardia, prompting the dose reduction, which had one episode of atri al fibrillation spontaneously converting back to sinus rhythm, but now we find persisting atrial fibr illation. RECOMMENDATIONS: I discussed treatment options with Mr. Hughes at length including medical management with alternative antiarrhythmic therapy versus radiofrequency ablation. Seeing that his atrial fibr illation was refractory to antiarrhythmic therapy, it is very likely that alternate agents will have similar results. At this point, he would like to weigh his options and consider ablation, but is not ready to pursue this at this time. In the meantime, recommendation would be for flecainide 100 mg p .o. b.i.d. with low-dose AV reji rate control. He may spontaneously cardiovert when started on flec ainide as he did on sotalol, otherwise may require JAKE cardioversion before discharge. Thank you for allowing me to participate in the care of this patient.
[2018-04-27 23:08] LABS: Hemoglobin 16.2 g/dL (14.0-18.0); Platelet Count 141 thou/uL (130-400)
[2018-04-27 23:24] LABS: Calc. Creatinine Clearance 114 mL/min (70-130); Estimated GFR-MDRD Greater than 90
--- NOTE | 2018-04-28 06:09 | PDOC.FM ---
- Subjective Subjective: Patient is a 63 yo M here with atrial fibrillation with RVR. Patient is currently weighing his options of medication vs ablation procedures. He has no complaints at this time. He reports feeling one episode of palpitations early this morning. Pt asked about ablation procedure and expressed wishing to get the procedure at this time after some thought. He denies SOB, chest pain, abdominal pain, fever, NVD. - Objective MAR Reviewed: Yes Vital Signs & Weight: Vital Signs (12 hours) Temp Pulse Resp BP Pulse Ox 04/28/18 03:58 98.7 F 84 16 107/81 94 L 04/28/18 00:36 77 16 105/63 04/28/18 00:16 84 16 87/58 L 04/27/18 20:53 97.8 F 89 16 96 04/27/18 20:51 97.8 F 89 16 114/74 96 Weight Weight 86.273 kg I&O: 04/26/18 04/27/18 04/28/18 06:59 06:59 06:59 Intake Total 820 Output Total 1125 800 Balance -305 -800 Result Diagrams: 04/27/18 22:53 04/27/18 22:53 <Jessica Michael - Last Filed: 04/28/18 16:10> - Objective Vital Signs & Weight: Vital Signs (12 hours) Temp Pulse Resp BP Pulse Ox 04/28/18 12:38 97.8 F 137 H 18 123/88 95 04/28/18 08:30 97.8 F 99 18 99 04/28/18 07:11 97.8 F 99 18 117/77 98 Weight Weight 86.273 kg I&O: 04/27/18 04/28/18 04/29/18 06:59 06:59 06:59 Intake Total 820 292.5 Output Total 1125 1550 Balance -305 -1257.5 Result Diagrams: 04/27/18 22:53 04/27/18 22:53 <Charla Jerez - Last Filed: 04/28/18 16:16> Phys Exam - Physical Examination Constitutional: NAD HEENT: PERRLA, moist MMs, sclera anicteric Neck: no JVD, supple, full ROM Respiratory: no wheezing, no rales, clear to auscultation bilateral Cardiovascular: RRR, no significant murmur Gastrointestinal: soft, non-tender, no distention, positive bowel sounds Musculoskeletal: no edema, pulses present Neurological: moves all 4 limbs Psychiatric: A&O x 3 Skin: no rash, normal turgor, cap refill <2 seconds <Jessica Michael - Last Filed: 04/28/18 16:10> Dx/Plan (1) BCC (basal cell carcinoma) Code(s): C44.91 - BASAL CELL CARCINOMA OF SKIN, UNSPECIFIED Status: Acute (2) HLD (hyperlipidemia) Code(s): E78.5 - HYPERLIPIDEMIA, UNSPECIFIED Status: Acute (3) History of alcohol use Code(s): Z87.898 - PERSONAL HISTORY OF OTHER SPECIFIED CONDITIONS Status: Acute (4) Atrial fibrillation with RVR Code(s): I48.91 - UNSPECIFIED ATRIAL FIBRILLATION Status: Acute - Plan Plan: 63 yo man with pmhx of pAF with RVR admitted in January 2018 on sotalol and aspirin daily, presents with palpitations, found to be in afib with RVR, rate controlled and switching to PO flecainide while pt weighs the option of ablation. Afib with RVR - Last admission, etiology of afib was suspected alcohol abuse, however this time the patient states he has not a drink in over a month. This time could likely be due to the change in sotalol dosage - Admitted to inpatient tele - Echo in January 2018 no signs of CHF - Currently no signs of infection - Recent stress with Dr. Christianson was normal per pt - Dr. Karena bobo: flecainide 100 mg BID with low dose AV reji rate control while pt weighs option of ablation. May need JAKE cardioversion if pt does not convert to sinus. Contact today to assess whether ablation can be done during hospital stay now that patient is agreeable to the procedure. HLD - Atorvastatin causes a rash - Will switch to pravastatin as pt is not on a high intensity dose Hx of alcohol abuse - >1 mo since last drink CODE STATUS: FULL DVT prophylaxis: th lovenox DISPO: likely stay 1-2 days for rate control and possible ablation procedure or JAKE cardioversion Case discussed with Dr. Jerez <Jessica Michael - Last Filed: 04/28/18 16:10> (1) Atrial fibrillation with RVR Code(s): I48.91 - UNSPECIFIED ATRIAL FIBRILLATION Status: Acute (2) HLD (hyperlipidemia) Code(s): E78.5 - HYPERLIPIDEMIA, UNSPECIFIED Status: Acute (3) BCC (basal cell carcinoma) Code(s): C44.91 - BASAL CELL CARCINOMA OF SKIN, UNSPECIFIED Status: Acute (4) History of alcohol use Code(s): Z87.898 - PERSONAL HISTORY OF OTHER SPECIFIED CONDITIONS Status: Acute <Charla Jerez - Last Filed: 04/28/18 16:16> Attending Addendum - Attending Addendum Date/Time: 04/28/18 [id number] I personally evaluated the patient and discussed the management with Dr. Michael. I agree with the History, Examination, Assessment and Plan documented above with any addition or exceptions noted below. Patient remains on diltiazem drip. Nursing notes his heart rate spikes everytime he gets up. Cardiology plans a JAKE this afternoon followed by cardioversion. Pt also on flecainide now. <Charla Jerez - Last Filed: 04/28/18 16:16>
[2018-04-28] MEDS: Aspirin 325 MG TAB PO SCH (09:05)
[2018-04-28] MEDS: Flecainide 50 MG TAB PO SCH ×2 (09:05→20:40)
[2018-04-28] MEDS: Enoxaparin Sodium 80 MG/0.8 ML SYRINGE SC SCH (09:40)
[2018-04-28] MEDS ORDERED: PROPOFOL 200 MG/20 ML VIAL ONE (15:04)
[2018-04-28] MEDS ORDERED: PROPOFOL 0 ML ONE (15:33)
--- NOTE | 2018-04-28 15:34 | PDOC.CTH ---
Cardiology Progress Note - Subjective EP progress note: Patient feels well other than some heart racing and palpitations. Eager to go home. No dizziness, chest pain, stroke like symptoms. - Objective Vital Signs Temp Pulse Resp BP Pulse Ox 04/28/18 12:38 97.8 F 137 H 18 123/88 95 04/28/18 08:30 97.8 F 99 18 99 04/28/18 07:11 97.8 F 99 18 117/77 98 04/28/18 03:58 98.7 F 84 16 107/81 94 L Weight 190 lb 3.2 oz 04/27/18 04/28/18 04/29/18 06:59 06:59 06:59 Intake Total 820 292.5 Output Total 1125 1550 Balance -305 -1257.5 - Physical Examination General/Neuro: alert & oriented x3, NAD Neck: carotid US brisk, no JVD present Lungs: CTA, unlabored respirations Heart: other: (rapid) Abdomen: no HSM, NT/ND - Telemetry Telemetry Rhythm: AF and A Flutter - Labs Result Diagrams: 04/27/18 22:53 04/27/18 22:53 Troponin/CKMB CK-MB (CK-2) 3.1 ng/mL (0-6.6) 04/26/18 07:35 Troponin I Less than 0.010 ng/mL (< 0.028) 04/26/18 13:38 - Assessment/Plan 1. Recurrent, persistent coarse atrial fibrillation and now 2:1 atypical flutter. Started flecainide 100mg BID yesterday. QRS remains stable on tele. Off Dilt gtt overnight r/t hypotension. RVR 130-140 persists though asymptomatic. Consented for JAKE/DCCV this afternoon with Dr. livingston. 2. CHADS2-VASC= 0. ASA indicated for CVA prophylaxis. 3. Normal EF 60-65% by Echo 01/2018 4. history of ETOH abuse- Reportedly stopped in January If successful DCCV, continue flecainide and ASA and ok to DC home after recovered from anesthesia by EP. We will see him back in [facility] clinic in 6 weeks for follow up and to discuss outpatient PVAI. If CV fails he will likely need to stay for further rate control as he continues to starts AAD/Flecainide.
[2018-04-28] MEDS ORDERED: PROPOFOL 20 ML ONE (15:40)
--- NOTE | 2018-04-28 16:34 | ECHO ---
PREPROCEDURE DIAGNOSIS: Atrial fibrillation. PROCEDURE: JAKE. Patient was consented for the procedure. Discussed proceeding with the patient prior to the JAKE. The risks of the procedure include but are not limited to damaged teeth, damage to back of throat, dam age to esophagus requiring emergent surgery as well as reaction to medication. All questions were an swered. Conscious sedation was performed with propofol. FINDINGS: Overall LVEF appears normal. Left atrial appendage well visualized. There is marked contraction pre sent with velocities greater than 50 cm per second. IMPRESSION: 1. No thrombus present within the left atrial appendage. 2. Increased velocities within the left atrial appendage
--- NOTE | 2018-04-28 16:38 | OP ---
PREPROCEDURE DIAGNOSIS: Atrial fibrillation. POSTPROCEDURE: Sinus rhythm. PROCEDURE: Synchronized cardioversion. Discussed proceeding with the procedure with the patient. The risks included but not limited to the following: Stroke, burning of skin, failed cardioversion and need for repeat cardioversion. All ques tions were answered. Given the above, patient agreed to proceed for procedure. The procedure was pe rformed after JAKE. Conscious sedation performed with propofol. Conscious sedation was successful in a synchronized fashion 150 joules. IMPRESSION: Successful synchronized cardioversion.
[2018-04-28] MEDS: Apixaban 5 MG TAB PO SCH (20:40)
--- NOTE | 2018-04-29 06:17 | PDOC.FM ---
- Subjective Subjective: This is a 63 yo M here with afib with RVR s/p JAKE cardioversion. Patient had no events overnight. He has no complaints or concerns. States he slept very well last night with no palpitations. Patient states he is ready to go home and will have close follow up with cards and EP. He denies SOB, chest pain, abdominal pain, subjective fever, chills, NVD. - Objective Vital Signs & Weight: Vital Signs (12 hours) Temp Pulse Resp BP Pulse Ox 04/28/18 20:40 98.7 F 81 20 94 L 04/28/18 20:35 98.7 F 81 20 127/83 94 L Weight Weight 86.183 kg I&O: 04/27/18 04/28/18 04/29/18 06:59 06:59 06:59 Intake Total 820 292.5 390 Output Total 1125 1550 0 Balance -305 -1257.5 390 Result Diagrams: 04/27/18 22:53 04/27/18 22:53 Phys Exam - Physical Examination Constitutional: NAD HEENT: PERRLA, moist MMs, sclera anicteric Neck: no JVD, supple, full ROM Respiratory: no wheezing, no rales, clear to auscultation bilateral Cardiovascular: no significant murmur irregularly irregular rate and rhythm Gastrointestinal: soft, non-tender, no distention, positive bowel sounds Musculoskeletal: no edema, pulses present Neurological: moves all 4 limbs Psychiatric: normal affect, A&O x 3 Skin: no rash, normal turgor Dx/Plan (1) BCC (basal cell carcinoma) Code(s): C44.91 - BASAL CELL CARCINOMA OF SKIN, UNSPECIFIED Status: Acute (2) HLD (hyperlipidemia) Code(s): E78.5 - HYPERLIPIDEMIA, UNSPECIFIED Status: Acute (3) History of alcohol use Code(s): Z87.898 - PERSONAL HISTORY OF OTHER SPECIFIED CONDITIONS Status: Acute (4) Atrial fibrillation with RVR Code(s): I48.91 - UNSPECIFIED ATRIAL FIBRILLATION Status: Acute - Plan Plan: 63 yo man with pmhx of pAF with RVR s/p JAKE cardioversion, rate controlled and switching to PO flecainide. Afib with RVR - Pt has converted to normal sinus rate and rhythm since 5pm yesterday s/p JAKE cardioversion - Last admission, etiology of afib was suspected alcohol abuse, however this time the patient states he has not a drink in over a month. This time could likely be due to the change in sotalol dosage - Echo in January 2018 no signs of CHF - Recent stress with Dr. Christianson was normal per pt - Dr. Thurston recaubree: flecainide 100 mg BID with low dose AV reji rate control while pt weighs option of ablation. Can f/u in 6 weeks for outpatient PVAI - Dr. Amor: successful JAKE cardioversion; continue with ASA and flecainide ; can D/c home if rate controlled HLD - Atorvastatin causes a rash - Will switch to pravastatin as pt is not on a high intensity dose Hx of alcohol abuse - >1 mo since last drink CODE STATUS: FULL DVT prophylaxis: lovenox DISPO: d/c today as long as rate controlled and he will f/u with cards and EP Case discussed with Dr. Bermudez
[2018-04-29] MEDS: Flecainide 50 MG TAB PO SCH (09:22)
[2018-04-29] MEDS: Apixaban 5 MG TAB PO SCH (09:22)
[2018-04-29 12:02] VITALS: BP 125/81; TEMP 97.8
--- NOTE | 2018-04-29 12:17 | EKG ---
Test Reason : PALPITATIONS Blood Pressure : / mmHG Vent. Rate : 128 BPM Atrial Rate : 141 BPM P-R Int : 000 ms QRS Dur : 084 ms QT Int : 284 ms P-R-T Axes : 000 -09 011 degrees QTc Int : 414 ms Atrial fibrillation with rapid ventricular response Nonspecific T wave abnormality , probably digitalis effect Abnormal ECG Confirmed by NICANOR RUSSELL ([id number]), photograph editor PARISA OCAMPO ([id number]) on 04/29/2018 12:17:28 PM Referred By: Confirmed By:NICANOR RUSSELL
--- NOTE | 2018-04-29 17:43 | DIS-2 ---
DATE OF ADMISSION: 04/26/2018 DATE OF DISCHARGE: 04/29/2018. RESIDENT: Jessica Michael MD ADMITTING ATTENDING: Charla Jerez MD DISCHARGE ATTENDING: Lorne Bermudez MD CONSULTATIONS: 1. Cardiology - Matthew Brown MD/Dallas Amor MD. 2. Electrophysiology, Aristides Thurston MD. PROCEDURES: 1. Chest x-ray on 04/26/2018 showed no acute cardiopulmonary findings. 2. JAKE cardioversion on 04/28/2018 was successful. No thrombus present within the left atrial appendage. Increased velocities within the left atrial appendage. PRIMARY DIAGNOSIS: Atrial fibrillation with rapid ventricular response, now converted to sinus rhythm. SECONDARY DIAGNOSES: 1. Hyperlipidemia. 2. History of alcohol abuse. 3. Basal cell carcinoma. DISCHARGE MEDICATIONS: 1. Flecainide (Tambocor) 100 mg oral every 12 hours. 2. Apixaban (Eliquis) 5 mg oral twice daily. 3. Atorvastatin (Lipitor) 20 mg oral at bedtime. 4. Aspirin 325 mg oral daily. 5. Fluorouracil (etodolac) 40 grams topical as directed. DISCONTINUED MEDICATIONS: Sotalol. HISTORY OF PRESENT ILLNESS/HOSPITAL COURSE: This is a 63-year-old male, who presented with palpitations secondary to atrial fibrillation with rapid ventricular response. He had been seen by Dr. Christianson during a hospitalization in 01/2018 and found to have atrial fibrillation. He was started on sotalol at that time and was following up with Dr. Christianson. The sotalol dosage was recently decreased due to bradycardia, which may have caused his return to atrial fibrillation. Previous echo revealed an ejection fraction of 60-65% with moderate left atrial enlargement, mild mitral regurgitation, trivial aortic regurgitation, somewhat thickened aortic valve leaflets, and trace tricuspid regurgitation. 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 He returned to the ER on 04/26/2018 due to palpitations and was found to be in atrial fibrillation with rapid ventricular response. He was started on a diltiazem drip and fully anticoagulated with Lovenox. He was rate controlled throughout the time. He then underwent JAKE cardioversion on 2017 and he converted to normal sinus rhythm. He was started on flecainide. The plan is for the patient to follow up with EP outpatient for an ablation procedure. DISPOSITION: Stable. DISCHARGE INSTRUCTIONS: 1. Location: Home. 2. Diet: Regular. 3. Activity: Ad trudy. 4. Follow up with primary care physician in 1 week and Electrophysiology within 4-6 weeks. CHRIS
--- NOTE | 2018-04-30 19:41 | ADD-PRG ---
DATE OF SERVICE: 04/29/2018 Addendum on progress note and discharge summary. Please see the note from Dr. Michael for which I agree. SUBJECTIVE: This is a 63-year-old gentleman who came in with atrial fibrillation with rapid ventricu lar rate, who eventually was cardioverted after JAKE, is now back in sinus rhythm, on flecainide, dishan g well. Sotalol was now held and will follow up with Cardiology as an outpatient and stay on the cur rent medications that he is on as he is stable currently. Continue aspirin therapy.
--- NOTE | 2018-05-01 12:39 | EKG ---
Test Reason : POST OP Blood Pressure : / mmHG Vent. Rate : 072 BPM Atrial Rate : 072 BPM P-R Int : 148 ms QRS Dur : 084 ms QT Int : 416 ms P-R-T Axes : 046 -10 026 degrees QTc Int : 455 ms Poor data quality, interpretation may be adversely affected Normal sinus rhythm with sinus arrhythmia Normal ECG When compared with ECG of 26-APR-2018 15:27, Sinus rhythm has replaced Atrial fibrillation Nonspecific T wave abnormality, improved in Inferior leads Nonspecific T wave abnormality no longer evident in Lateral leads Confirmed by FLOR SKY ([id number]) on 05/01/2018 12:39:37 PM Referred By: LUCIEN Confirmed By:FLOR SKY
== END 2018-04-29 14:32 | disposition home or self-care (01) | DRG 310 ==
LOC: ERS 07:15 → ERHOLD 09:00 → 2NO 14:18
PROVIDERS: ADMIT Family Medicine; ATTEND Family Medicine
PROC: B245ZZ4 Ultrasonography of Left Heart, Transesophageal (ICD-10-PCS; principal; 2018-04-28)
PROC: 5A2204Z Restoration of Cardiac Rhythm, Single (ICD-10-PCS; 2018-04-28)
DX: I48.0 Paroxysmal atrial fibrillation (principal); E78.5 Hyperlipidemia, unspecified; C44.91 Basal cell carcinoma of skin, unspecified; F10.11 Alcohol abuse, in remission
CPT/HCPCS: 36415; 71045; 80048; 80053; 82553; 84484; 85025; 92960; 93005; 93010; 93312; 94760; 96365; 96366; 96376; A4216; J1650; J2704; J7050

== ENCOUNTER 2018-10-21 08:11 | Emergency (ER) | payer BC ==
[2018-10-21 08:34] LABS: #Eosinphils 0.1 thou/uL (0.0-0.7); #Lymphocytes 1.1 thou/uL (1.20-3.40); #Monocytes 0.6 thou/uL (0.11-0.59); %Basophils 0.3 % (0.0-1.0); %Eosinophils 1.3 % (0.0-10.0); %Lymphocytes 10.8 % (21.0-51.0); %Monocytes 6.1 % (0.0-10.0); %Neutrophils 81.4 % (42.0-75.0); Hemoglobin 17.2 g/dL (14.0-18.0); Mean Corpuscular HGB CONC 32.8 g/dL (32.0-36.0); Mean Corpuscular Hemoglobin 31.7 pg (27.0-31.0); Mean Corpuscular Volume 96.6 fL (78.0-98.0); Mean Platelet Volume 9.3 fL (7.4-10.4); Platelet Count 168 thou/uL (130-400); Red Blood Cell (RBC) Count 5.43 mill/uL (4.70-6.10); White Blood Cell (WBC) Count 9.9 thou/uL (4.8-10.8)
[2018-10-21 08:59] LABS: ALT (SGPT) 18 U/L (8-55); AST (SGOT) 21 U/L (5-34); Alkaline Phosphatase 82 U/L (40-150); Anion Gap 11 mmol/L (10-20); BUN (Urea Nitrogen) 13 mg/dL (8.4-25.7); Bilirubin, Total 0.8 mg/dL (0.2-1.2); CK (CPK) 242 U/L (30-200); Calc. Creatinine Clearance 0 mL/min (70-130); Calcium 9.7 mg/dL (7.8-10.44); Carbon Dioxide 29 mmol/L (23-31); Chloride 105 mmol/L (98-107); Estimated GFR-MDRD 87; Globulin 2.7 g/dL (2.4-3.5); Glucose 97 mg/dL (80-115); Potassium 4.2 mmol/L (3.5-5.1); Protein, Total 6.7 g/dL (5.8-8.1); Sodium 141 mmol/L (136-145)
[2018-10-21] MEDS ORDERED: PROPOFOL 20 ML ONE (09:14)
--- NOTE | 2018-10-21 09:30 | RAD ---
TWO VIEWS OF THE CHEST: COMPARISON: 04/26/2018. HISTORY: Chest palpitations and chest pain. FINDINGS: Two views of the chest show normal sized cardiomediastinal silhouette. There is no evidence of consol idation, mass, or pleural effusion. The bones are unremarkable. IMPRESSION: No evidence of acute cardiopulmonary disease. POS: [facility]
== END 2018-10-21 10:42 | disposition home or self-care (01) ==
LOC: ERS 08:11
DX: I48.92 Unspecified atrial flutter (principal); E78.5 Hyperlipidemia, unspecified; Z79.82 Long term (current) use of aspirin; Z79.899 Other long term (current) drug therapy
CPT/HCPCS: 36415; 71046; 80053; 82550; 84484; 85025; 92960; 93005; 96360; 99152; J2704

== ENCOUNTER 2018-12-06 04:39 | Outpatient (CLI) | payer BC ==
[2018-12-06 10:44] LABS: Hemoglobin 15.9 g/dL (14.0-18.0); Mean Corpuscular HGB CONC 33.6 g/dL (32.0-36.0); Mean Corpuscular Hemoglobin 32.2 pg (27.0-31.0); Mean Corpuscular Volume 95.8 fL (78.0-98.0); Mean Platelet Volume 9.2 fL (7.4-10.4); Platelet Count 162 thou/uL (130-400); RBC Distribution Width 11.7 % (11.5-14.5); Red Blood Cell (RBC) Count 4.94 mill/uL (4.70-6.10); White Blood Cell (WBC) Count 7.1 thou/uL (4.8-10.8)
[2018-12-06 10:46] LABS: INR-International Normal Ratio 1.7; PTT 39.4 SEC (22.9-36.1)
[2018-12-06 11:05] LABS: Anion Gap 13 mmol/L (10-20); BUN (Urea Nitrogen) 15 mg/dL (8.4-25.7); Calc. Creatinine Clearance 0 mL/min (70-130); Calcium 8.9 mg/dL (7.8-10.44); Carbon Dioxide 28 mmol/L (23-31); Chloride 105 mmol/L (98-107); Estimated GFR-MDRD Greater than 90; Glucose 82 mg/dL (80-115); Potassium 4.6 mmol/L (3.5-5.1); Sodium 141 mmol/L (136-145)
== END 2018-12-06 04:40 | disposition home or self-care (01) ==
LOC: LABBT 04:39
PROVIDERS: ATTEND Internal Medicine Cardiovascular Disease
DX: Z01.818 Encounter for other preprocedural examination (principal); I48.91 Unspecified atrial fibrillation
CPT/HCPCS: 80048; 85027; 85610; 85730; 93005; 93010

== ENCOUNTER 2018-12-11 05:44 | Observation (INO) | payer BC ==
[2018-12-11] MEDS ORDERED: Heparin 10,000 UNITS/1 ML VIAL ONE (06:53)
[2018-12-11] MEDS ORDERED: Fentanyl 100 MCG/2 ML VIAL ONE (08:04)
[2018-12-11] MEDS ORDERED: Isoproterenol 0.2 MG/1 ML AMP ONE (08:56)
[2018-12-11] MEDS ORDERED: Heparin 25,000 units/D5W 500 ML ONE (09:31)
[2018-12-11] MEDS ORDERED: Protamine Sulfate 50 MG/5 ML VIAL ONE (11:56)
--- NOTE | 2018-12-11 11:58 | OP ---
DATE OF PROCEDURE: 12/11/2018 PROCEDURE PERFORMED: Electrophysiology study and radiofrequency ablation. REASON FOR PROCEDURE: Mr. Hughes is a 63-year-old man with prior history of persistent atrial fibrillation, refractory flecainide with normal suction and normal heart. He is anticoagulated with Xarelto. He is here for radiofrequency ablation. DESCRIPTION OF PROCEDURE: The patient received propofol by Anesthesia specialist. After adequate level of sedation achieved, the left and right femoral veins were prepped, draped, and anesthetized using subcutaneous lidocaine and under ultrasound guidance, both femoral veins were accessed x2. On the left side, an 11-Occitan sheath was used to advanced the intracardiac echocardiogram probe into the right atrium, which was used to monitor the transeptal procedure as well as hemodynamics monitoring and monitor the pericardial space throughout the procedure. Also from the left femoral vein, a Preface sheath was advanced through which a DuoDeca catheter was used to access the coronary sinus and the right atrium. From the right side, two 8-Occitan short sheaths were introduced. Initially, a right atrial map was obtained using ThermoCool SFST catheter was advanced to the right atrium and was used to obtain right atrial map. Following that, the short sheath was exchanged to SL1 transseptal sheaths and with [place] transseptal needle, transseptal puncture was performed under fluoroscopy and intracardiac echo monitoring. Prior to the puncture, intravenous heparin was administered in bolus and drip, and ACT was monitored to keep anticoagulation adequate with ACT over 350 throughout the procedure. Following that, 3D map of the left atrium was obtained using a 20-pole Lasso catheter and ThermoCool SFST catheter was used to perform pulmonary venous isolation and posterior wall isolation as well. A total of 55 lesions delivered at 31 minutes and 59 seconds. Isolation of all 4 pulmonary veins was achieved as part of the posterior wall. Throughout the procedure, esophageal temperature probe was used to monitor the esophagus temperature to avoid excessive heating. Baseline EP study was obtained with the following finding. Baseline cycle length of sinus rhythm 980 milliseconds, IL 121 milliseconds, QRS 97 milliseconds, QT 404 milliseconds, AH 67 milliseconds, HV 44 milliseconds. AV Wenckebach cycle length was 300 milliseconds with retrograde Wenckebach cycle length was 320 milliseconds with concentric retrograde VA activation noted. This was during left ventricular pacing. AV reji ERP was 400/200 during Isuprel. Burst atrial pacing did not induce significant arrhythmias. Following that, Isuprel was administered and pulmonary veins and posterior wall was rechecked, any reconnection was re-ablated. At the end of the case, intracardiac echo and cine images do not reveal significant effusion. The patient tolerated the procedure well. Sheaths were pulled in the general laborer after protamine administration. CONCLUSION: 1. Successful pulmonary venous isolation procedure and posterior wall isolation performed. 2. Normal sinus and AV reji and His-Purkinje function. 3. No evidence of accessory pathway or dual AV reji physiology present. PLAN: Continue anticoagulation and routine monitoring. Job ID: [id number]
[2018-12-11] MEDS ORDERED: Acetaminophen/Codeine 30-300mg Tablet PO PRN ×2 (12:15)
[2018-12-11 13:40] VITALS: BMI 25.6
[2018-12-11] MEDS ORDERED: PROPOFOL 200 MG/20 ML VIAL ONE (15:59)
[2018-12-11] MEDS ORDERED: Dexamethasone 20 MG/5 ML VIAL ONE (15:59)
[2018-12-11] MEDS ORDERED: PHENYLEPHRINE-NS 100 MCG/ML 10 ML SYRINGE ONE (15:59)
[2018-12-11] MEDS ORDERED: Heparin 30,000 units/30 ml VIAL ONE (15:59)
[2018-12-11] MEDS ORDERED: Protamine Sulfate 250 MG/25 ML VIAL ONE (15:59)
[2018-12-11] MEDS ORDERED: Ondansetron PF 4 MG/2 ML Vial ONE (15:59)
[2018-12-11] MEDS ORDERED: Glycopyrrolate 0.2 MG/ML 5 ML SYRINGE ONE (15:59)
[2018-12-11] MEDS ORDERED: Lidocaine 1% PF 5 ML VIAL ONE (15:59)
[2018-12-11] MEDS ORDERED: Rocuronium Bromide 10 MG/ML (10ML VIAL) ONE (15:59)
[2018-12-11] MEDS ORDERED: ePHEDrine 50 MG/ML VIAL ONE (15:59)
[2018-12-12] MEDS ORDERED: Sodium Chloride 0.9% 500 ML IV PRN (00:27)
[2018-12-12] MEDS ORDERED: Ketorolac Tromethamine 30 MG/ML VIAL IVP SCH (13:00)
[2018-12-12 16:16] VITALS: BP 108/63; TEMP 98.1
--- NOTE | 2018-12-12 16:53 | DIS ---
DATE OF ADMISSION: 12/11/2018 DATE OF DISCHARGE: 12/12/2018 DIAGNOSIS: Persistent atrial fibrillation. PROCEDURES PERFORMED: Electrophysiology study and radiofrequency ablation. HISTORY OF PRESENT ILLNESS: Mr. Hughes is a 63-year-old gentleman with a history of persistent atrial fibrillation, refractory to flecainide. He was admitted to observation for an elective outpatient ablation for his atrial fibrillation, which was performed on 12/11/2018. During his procedure, he underwent successful pulmonary venous isolation procedure as well as posterior wall isolation. He is found to have normal sinus and AV reji in addition to normal His-Purkinje function. There was no evidence of accessory pathway or dual AV reji physiology present. Recommendations following the ablation were for continued anticoagulation and monitoring. SUBJECTIVE: Mr. Hughes has done well following his ablation. He has had some chest discomfort and shortness of breath over the night with reportedly transiently low blood pressure. His chest discomfort was predictable and often positional. He was given some p.r.n. oral pain medication, which did help relieve his pain. He has been ambulating throughout the johns, tolerating p.o. intake, voiding normally. Groin sites have been stable without bleeding complication. He feels ready to go home. REVIEW OF SYSTEMS: An 8-point review of systems is conducted, is negative except that listed above. OBJECTIVE: VITAL SIGNS: Temperature 98.4, pulse 83, blood pressure 114/69, respirations 20, oxygen is 99% on room air. GENERAL: The patient is alert and oriented. Speech is clear. Affect is appropriate. HEART: Rate is regularly regular. [place] S1, S2. No friction rubs, murmurs, or gallops are appreciated. LUNGS: Clear to auscultation in upper lobes with some fine bibasilar crackles. Respirations are even and unlabored. EXTREMITIES: Warm and dry to touch without clubbing, cyanosis, or edema. ABDOMEN: Soft and nontender without palpable masses. Hepatojugular reflux is negative. NEUROLOGIC: Grossly intact and nonfocal. Gait is stable. Bilateral groin sites are stable without hematoma. Dressings remained intact. DISCHARGE MEDICATIONS: He will resume his home medication of Xarelto one tab p.o. daily. Discontinued medications include flecainide. New prescriptions include: 1. Sucralfate 1 g p.o. q.i.d. x2 weeks. 2. Pantoprazole 40 mg p.o. daily x1 month. 3. Lasix 40 mg daily x3 days, then as needed for shortness of breath. 4. Potassium chloride 20 mEq daily to be taken only when taking Lasix. DISCHARGE INSTRUCTIONS: No lifting more than 10 pounds for 2 weeks. After 1 week, he may resume activity gradually and as tolerated. Follow up with [facility] in 6 weeks or sooner if symptoms dictate. Continue taking blood thinning medication without interruption. No soaking baths for 1 week. A work release note was provided. He may return to work after 1 week with light duty restrictions until he feels able to perform his job. CONDITION AT DISCHARGE: Stable. Job ID: [id number]
--- NOTE | 2018-12-12 21:08 | EKG ---
Test Reason : POST ABLATION Blood Pressure : / mmHG Vent. Rate : 072 BPM Atrial Rate : 072 BPM P-R Int : 140 ms QRS Dur : 086 ms QT Int : 410 ms P-R-T Axes : 069 011 029 degrees QTc Int : 448 ms Normal sinus rhythm Normal ECG When compared with ECG of 06-DEC-2018 09:48, (Unconfirmed) No significant change was found Confirmed by ANTONIO GARCIA, DR. S. ([id number]) on 12/12/2018 9:08:14 PM Referred By: CARLOS Confirmed By:DR. Haylie ALVAREZ MD
== END 2018-12-12 17:06 | disposition home or self-care (01) ==
LOC: CCL 05:44 → 2SE 12:27 → INTOOBSV 12:27 → 2SW 17:31
PROVIDERS: ADMIT Internal Medicine Cardiovascular Disease; ATTEND Internal Medicine Cardiovascular Disease
PROC: 02583ZZ Destruction of Conduction Mechanism, Percutaneous Approach (ICD-10-PCS; principal; 2018-12-11)
PROC: 02K83ZZ Map Conduction Mechanism, Percutaneous Approach (ICD-10-PCS; 2018-12-11)
PROC: 4A023FZ Measurement of Cardiac Rhythm, Percutaneous Approach (ICD-10-PCS; 2018-12-11)
PROC: 4A0234Z Measurement of Cardiac Electrical Activity, Percutaneous Approach (ICD-10-PCS; 2018-12-11)
DX: I48.1 Persistent atrial fibrillation (principal); I10 Essential (primary) hypertension; Z79.01 Long term (current) use of anticoagulants; Z79.899 Other long term (current) drug therapy
CPT/HCPCS: 76942; 85347; 93005; 93010; 93306; 93613; 93622; 93623; 93656; 93662; 96374; C1730; C1731; C1732; C1759; C1769; G0378; J1100; J1644; J1885; J2001; J2405; J2704; J2720; J3010; J3490